=== PATIENT | female | born 1955 | race Caucasian/White ===

== ENCOUNTER → 2017-04-08 | Outpatient (CLI) | payer BC ==
--- NOTE | 2017-04-08 15:49 | MAMMOGRAPHY REPORT ---
BILATERAL DIGITAL SCREENING MAMMOGRAM WITH CAD: 04/08/2017 CLINICAL HISTORY: Routine screening. TECHNIQUE: Current study was also evaluated with a Computer Aided Detection (CAD) system. Bilateral CC and MLO views were obtained. COMPARISON: Comparison is made to exams dated: 03/03/2016 mammogram, 01/23/2014 mammogram, 02/25/2015 ma mmogram, 11/30/2012 mammogram, 11/06/2010 mammogram, and 11/17/2011 mammogram - [facility] er. BREAST COMPOSITION: There are scattered areas of fibroglandular density in both breasts. FINDINGS: No suspicious masses, calcifications, or areas of architectural distortion are noted in ei ther breast. There has been no significant interval change compared to prior exams. IMPRESSION: ACR BI-RADS CATEGORY 1: NEGATIVE There is no mammographic evidence of malignancy. A 1 year screening mammogram is recommended. The pa tient will receive written notification of the results. Approximately 10% of breast cancers are not detected with mammography. A negative mammographic report should not delay biopsy if a clinically suggestive mass is present. Brenda Eller M.D. ah/:04/08/2017 14:45:26 Supervisor Opening And Picking: Bonny BENITEZ(R)(M), [facility] letter sent: Normal 1/2 BI-RADS Code: ACR BI-RADS Category 1: Negative
== END | disposition home or self-care (01) ==
LOC: C.MAMM 13:39
PROVIDERS: ATTEND Internal Medicine
DX: Z12.31 Encounter for screening mammogram for malignant neoplasm of breast (principal)

== ENCOUNTER 2022-01-07 05:01 | Observation (INO) ==
--- NOTE | 2021-12-07 12:14 | PAT Medication Instructions ---
Medication Instructions Date of Service December 07, 2021 Home Medications Medication Instructions Recorded tramadol 50 mg tablet 50 mg PO Q6H PRN #12 tab 10/01/20 lisinopril 5 mg tablet 5 mg PO QPM aspirin 81 mg tablet 81 mg PO QAM atorvastatin 40 mg tablet 40 mg PO PM loratadine 10 mg tablet 10 mg PO QAM PRN vitamin B complex 1 tab PO QAM tramadol 50 mg tablet 50 mg PO Q6H PRN cholecalciferol (vitamin D3) 100 mcg (4,000 unit) capsule 100 mcg PO BID metoprolol succinate 25 mg tablet,extended release 24 hr 12.5 mg PO QAM DO NOT take the morning of surgery loratadine 10 mg tablet 10 mg PO QAM PRN vitamin B complex 1 tab PO QAM cholecalciferol (vitamin D3) 100 mcg (4,000 unit) capsule 100 mcg PO BID Take morning of surgery With a small sip of water, OTHERWISE NOTHING TO EAT OR DRINK AFTER MIDNIGHT: aspirin 81 mg tablet 81 mg PO QAM (unless surgeon directed otherwise) tramadol 50 mg tablet 50 mg PO Q6H PRN (if needed) metoprolol succinate 25 mg tablet,extended release 24 hr 12.5 mg PO QAM Take evening before surgery lisinopril 5 mg tablet 5 mg PO QPM atorvastatin 40 mg tablet 40 mg PO PM tramadol 50 mg tablet 50 mg PO Q6H PRN (if needed) cholecalciferol (vitamin D3) 100 mcg (4,000 unit) capsule 100 mcg PO BID Other Notes If you have any questions please call us at [phone] or [phone] or [phone] or [phone]
--- NOTE | 2021-12-08 10:58 | Anesthesiology Consultation ---
Date of Service December 08, 2021 Assessment & Plan (1) Encounter for pre-operative examination: Chart Review Chart Review: Acceptable Risk for Surgery (pending preop Covid testing results and PCP clearance scheduled 12/10/21) and Patient seen in Pre Admission Testing - Awaiting PCP clearance scheduled 12/10/21 Per PAT appt on 12/08/21, patient denies any recent travel or large group activities. No known Covid positive exposures or Covid related symptoms. No known Covid infection in the past 90 days. Pt is vaccinated for Covid. Preop Covid testing scheduled 01/05/22 = will await results. Educated on importance of self quarantining, social distancing and wearing mask in public for the patient one week prior to surgery and after Covid testing done Pt seen by cardio 10/26/21= patient seen for routine follow-up. Patient also looking to undergo knee replacement in near future. History of equivocal stress test that showed hypertensive BP response to exercise. Lisinopril was increased and patient continued on metoprolol. Patient feels well and offers no acute complaints. Hypertensionwell controlled in office. Continue current meds. Dyslipidemia/coronary artery calcification seen on CT scan. Nonischemic DSE in April 2021. EKG today showing NSR. Patient without exertional angina symptoms. Continue current medications. Pre-operative cardiovascular examination: In terms of preop risk assessment, per Humza Criteria, patient was counseled that she would be placed at a [id number]-[id number] risk (less than 5 %)for any adverse perioperative cardiovascular events associated with right knee replacement surgery. Negative dobutamine stress echo last April. EKG stable showing normal sinus rhythm. Patient is on a good medication regimen and no other cardiac testing or interventions would further lower that risk. Patient states she understands and is accepting ofthat risk and wishes to proceed with surgery. Right knee scope, partial medial and lateral meniscectomy 10/01/2020 = done under [facility] with LMA #4. Smooth IV induction. Atraumatic LMA insertion. Teaching & Discussion Pre-Anesthesia Teaching/Discussion Notes: Instructed NPO after midnight before surgery,except medications with 15 cc of water. Medication instructions provided according to the PAT guidelines. History Surgery Operation Date: 01/07/22 07:00 Proposed Procedures p Right Total Knee Arthroplasty - Kareem Desai MD Height/Weight Height: 5 ft Weight: 61.6 kg Allergies Allergy/AdvReac Type Severity Reaction Status Date / Time nickel Allergy Mild SKIN Verified 12/07/21 08:53 IRRITATION/RASH Additional Notes: Surgeon's office aware of nickel allergy Medications Home Medications Medication Instructions Recorded Confirmed Last Taken lisinopril 5 mg tablet 5 mg PO QPM 01/21/20 12/07/21 09/30/20 aspirin 81 mg tablet 81 mg PO QAM 09/26/20 12/07/21 09/26/20 atorvastatin 40 mg tablet 40 mg PO PM 09/26/20 12/07/21 09/30/20 loratadine 10 mg tablet 10 mg PO QAM PRN 09/26/20 12/07/21 10/01/20 05:00 vitamin B complex 1 tab PO QAM 09/26/20 12/07/21 10/01/20 05:00 tramadol 50 mg tablet 50 mg PO Q6H PRN #12 tab 10/01/20 12/07/21 Unknown cholecalciferol (vitamin D3) 100 100 mcg PO BID 12/07/21 12/07/21 Unknown mcg (4,000 unit) capsule metoprolol succinate 25 mg 12.5 mg PO QAM 12/07/21 12/07/21 Unknown tablet,extended release 24 hr Past Medical History Medical History Carotid artery plaque <50% bilaterally per 2019 duplex Coronary artery calcification On CT scan- negative DSE 04/2021 per cardio records FH of CAD (follows with S Cardio) Degenerative disc disease Lumbar area History of colon cancer S/p colectomy 2004- no chemo or XRT Hx of migraines Hyperlipidemia Hypertension Pre-diabetes Diet control Stress incontinence No current issues/stable Exercise / Class Metabolic Activity II 4-5 Yardwork/Stairs/Walk up hill (one flight of stairs - no chest pain or SOB ) Past Family History Family History Mother Family hx of colon cancer Family history of diabetes mellitus Grandmother (Maternal) Family history of diabetes mellitus Grandfather (Maternal) Family hx of colon cancer Other No family history of adverse response to anesthesia Past Surgical History Surgical History H/O parathyroidectomy 2 SURGERIES (did have hypercalcemia prior to surgery- improved s/p surgery- follows with endocrinology) History of arthroscopy right knee History of carpal tunnel release RT History of colon resection x2 from hx cancer no chemo or radiation History of colonoscopy History of salpingo-oophorectomy bilat History of tooth extraction Past Anesthesia History No Hx of Anesthesia Complications and No Family Hx of Anesthesia Complications History of PONV No Hx of PONV and No Hx of Motion Sickness Social History Smoking Status: Former smoker tobacco type: cigarettes Do You Dip or Chew Tobacco: No Smoking End Date: 1984 Hx Alcohol Use: No Hx Substance Use: No substance use type: does not use Review of Systems Hx of snoring- no witnessed apnea. No hx of sleep study Patient denies chest pain, shortness of breath, dyspnea on exertion, reflux, cough, wheezing, palpitations. No hx of seizures, stroke, VA. No hx of blood clots or blood transfusions Physical Exam Vital Signs VITALS BP 139/76 P 67 TEMP 98.3 SP02 98% RESP 16 Constitutional no acute distress ENMT Mouth: no TMJ clicking Thyromental Distance: < 3.5 Finger Breadths (2.5) Mallampati Class: II Missing bottom molars Full upper denture Neck + limited neck extension (minimal ) Respiratory normal respiratory effort; no respiratory distress Auscultation: lungs clear to auscultation bilaterally; no wheezes Cardiovascular Rate/Rhythm: regular rate and regular rhythm Heart Sounds: no murmur Vessels: no carotid bruit Musculoskeletal Spine: no pain with cervical ROM Extremities: extremities normal to inspection Psychiatric Orientation: alert Lab Results Anesthesia Preop Results Results Anesthesia Widget: WBC 6.25 K/uL (4.8-10.8) 12/08/21 Hgb 12.2 g/dL (12.0-16.0) 12/08/21 Hct 37.5 % (37-47) 12/08/21 Plt 313 K/uL (130-400) 12/08/21 Na 141 mmol/L (136-145) 12/08/21 K 4.3 mmol/L (3.5-5.1) 12/08/21 Cl 105 mmol/L (98-107) 12/08/21 CO2 28 mmol/L (21-32) 12/08/21 BUN 13 mg/dl (6-23) 12/08/21 Creat 0.60 mg/dl (0.6-1.2) 12/08/21 Glucose Level 84 mg/dl (70-99(Fasting)) 12/08/21 PT 10.8 Seconds (9.0-12.0) 12/08/21 PTT 26.4 Seconds (21.0-31.0) 12/08/21 INR 1.0 (0.9-1.1) 12/08/21 HA1c 6.3 % (4.5-5.6) H 12/08/21 Urine Color Yellow 12/08/21 Urine Appearance Clear (Clear) 12/08/21 Urine pH 7.5 (4.5-7.5) 12/08/21 Urine Specific [place] 1.007 (1.000-1.030) 12/08/21 Urine Protein Negative (Negative) 12/08/21 Urine Glucose (UA) Negative (Negative) 12/08/21 Urine Ketones Negative (Negative) 12/08/21 Urine Blood Negative (Negative) 12/08/21 Urine Nitrite Negative (Negative) 12/08/21 Urine Bilirubin Negative (Negative) 12/08/21 Urine Urobilinogen Negative (Negative) 12/08/21 Urine Leukocyte Esterase Negative (Negative) 12/08/21 Blood Type A Positive 12/08/21 Antibody Screen NEGATIVE 12/08/21 Testing Electrocardiogram Date: 10/26/21 Findings: + NSR @ (60bpm ) Normal EKG per cardio. Chest X-Ray Date: 12/08/21 Findings: + NAD FINDINGS: The lungs are clear. Cardiac silhouette is normal in size. No pleural effusions. No pneumothorax. S-shaped scoliosis and mild to moderate degenerative changes seen within the thoracolumbar spine. Stress Test Date: 04/15/21 Type: exercise (ECHO ) Resting EF: 60% Resting LV Function: normal Stress echo is probably negative for inducible ischemia, the septum is dyssynchronous with stress. Hypertensive BP response to stresspeak systolic pressure of 220 mmHg. Abnormal wall motion likely related to hypertension Stress EKG is equivocal for ischemia Adequate cardiovascular stress test as patient obtain 96% MPHR. 6.4 METS achieved. No significant arrhythmias were noted. Normal HR and hypertensive BP response to exercise. Patient denies chest discomfort reporting only fatigue at peak exercise. Grade 1 DD. LV wall thickness is normal. Mild MR. Other Testing Chest CT scan 01/05/2021 = tiny 2 mm subpleural nodule in the right upper lobe which is likely the nodule described on prior CT scan report from 01/18/2022. Unchanged. No further imaging follow-up of this is necessary, however, if the patient has greater than 39-ybmh-wlch history of smoking and she may qualify for annual lung cancer screening with low-dose CTs of the chest. Mild emphysematous lung disease. Carotid duplex 07/11/2019 = right and left carotid artery duplex examination i ndicates evidence of less than 50% stenosis of bilateral internal carotid arteries. Antegrade flow to both vertebral arteries.
--- NOTE | 2022-01-02 09:04 | History & Physical Report ---
Date of Service January 02, 2022 Assessment & Plan (1) Primary osteoarthritis of right knee: Plan: Treatment options discussed with the patient. She has failed conservative measures. She would like to proceed with surgical intervention. Risks, benefits and alternatives to surgery including but not limited to infection, DVT, pain, stiffness, need for revision surgery, damage to blood vessels, damage to nerves, PE, , were discussed with the patient and they wish to proceed. Plan for right total knee arthroplasty scheduled for Vasyl Shelby on January [address] Desai. We will plan on aspirin twice daily for 1 month postop for DVT prophylaxis. We will plan on outpatient PT postop. All questions answered. Patient will follow up postoperatively. History of Present Illness Chief Complaint: Right knee pain Primary Care Provider: Yari Loving MD 66-year-old female with past medical history significant for hypertension, high cholesterol, colon cancer, carotid artery disease who presents with ongoing right knee pain. Pain is interfering with her daily activities. She has failed conservative measures. She would like to proceed with surgery. Patient denies headaches, sweats, fevers, chills, double vision, blurred vision, cough, sore throat, dysphagia, chest pain, sob, wheezing, n/v/d/c, numbness, tingling, fatigue, urinary symptoms, mood disorders. ROS positive for right knee pain and stiffness. Allergies Allergy/AdvReac Type Severity Reaction Status Date / Time nickel Allergy Mild SKIN Verified 12/07/21 08:53 IRRITATION/RASH Home Medications Medication Instructions Recorded Confirmed Type lisinopril 5 mg tablet 5 mg PO QPM 01/21/20 12/07/21 History aspirin 81 mg tablet 81 mg PO QAM 09/26/20 12/07/21 History atorvastatin 40 mg tablet 40 mg PO PM 09/26/20 12/07/21 History loratadine 10 mg tablet 10 mg PO QAM PRN 09/26/20 12/07/21 History vitamin B complex 1 tab PO QAM 09/26/20 12/07/21 History tramadol 50 mg tablet 50 mg PO Q6H PRN #12 tab 10/01/20 12/07/21 Rx cholecalciferol (vitamin D3) 100 100 mcg PO BID 12/07/21 12/07/21 History mcg (4,000 unit) capsule metoprolol succinate 25 mg 12.5 mg PO QAM 12/07/21 12/07/21 History tablet,extended release 24 hr metformin 500 mg tablet,extended 500 mg PO DAILY 12/16/21 12/16/21 History release 24hr Past Med/Surg History Medical History (Updated 01/02/22 @ 09:03 by Иван Lange PA-C) Carotid artery plaque <50% bilaterally per 2018 duplex Coronary artery calcification On CT scan- negative DSE 04/2021 per cardio records FH of CAD (follows with S Cardio) Degenerative disc disease Lumbar area History of colon cancer S/p colectomy 2004- no chemo or XRT Hx of migraines Hyperlipidemia Hyperparathyroidism Per PCP records Hypertension Pre-diabetes On Metformin Stress incontinence No current issues/stable Surgical History H/O parathyroidectomy 2 SURGERIES (did have hypercalcemia prior to surgery- improved s/p surgery- follows with endocrinology) History of arthroscopy right knee History of carpal tunnel release RT History of colon resection x2 from hx cancer no chemo or radiation History of colonoscopy History of salpingo-oophorectomy bilat History of tooth extraction Family History Mother Family hx of colon cancer Family history of diabetes mellitus Grandmother (Maternal) Family history of diabetes mellitus Grandfather (Maternal) Family hx of colon cancer Other No family history of adverse response to anesthesia Social History Smoking Status: Former smoker Second Hand Exposure: No; Hx Alcohol Use: No Hx Substance Use: No Preferred Language: Gambian Communication Ability: Effective Medical Staff Credentialing Coordinator Required: No Beliefs That Will Affect Care: None Current Living Situation: Spouse Feels Safe at Home: Yes Assistive Devices: Denture - Upper and Glasses Review of Systems All systems reviewed & are unremarkable except as noted in HPI & below Physical Exam Constitutional: well developed and well nourished; no acute distress Eyes: PERRL, conjunctivae normal, anicteric sclerae ENMT: external ear and nose normal, oropharynx normal Neck: trachea midline, no thyromegaly Respiratory: normal respiratory effort, lungs clear to auscultation Cardiovascular: RRR, no murmur, no edema Musculoskeletal: Right knee: Tenderness medial joint line. Varus alignment. Mild crepitation with range of motion stable to valgus and varus stress test. Range of motion 0- 135 degrees. Skin: no rashes, warm and dry Neurologic: patellar DTR's 2+ bilat, sensation intact Psychiatric: A+Ox3, euthymic affect Results & Data ([facility]) Diagnostic Findings Right knee: Severe end-stage osteoarthritis right knee [id number] medial compartment. There is subchondral cystic formation medial tibial plateau. There is tricompartmental degenerative changes.
[2022-01-07] MEDS ORDERED: FAMOTIDINE 20 MG TAB PO SCH (06:00)
[2022-01-07] MEDS ORDERED: LR 500ML BOLUS, THEN 15ML/HR IV SCH (06:00)
[2022-01-07] MEDS ORDERED: GABAPENTIN 300 MG CAP PO SCH (06:00)
[2022-01-07] MEDS ORDERED: ceFAZolin 1000MG 1,000 MG/7.5 ML SYR IV SCH (06:00)
[2022-01-07] MEDS ORDERED: TRANEXAMIC ACID 1,000 MG **IV Intra-op IV SCH (06:00)
[2022-01-07] MEDS ORDERED: dexAMETHasone 4 MG TAB PO SCH (06:00)
[2022-01-07] MEDS ORDERED: TRANEXAMIC ACID 1,000 MG **IV Pre-op IV SCH (06:00)
[2022-01-07] MEDS ORDERED: CeleBREX 200 MG CAP PO SCH (06:00)
[2022-01-07] MEDS ORDERED: METOCLOPRAMIDE HCL 10 MG TABLET PO SCH (06:00)
[2022-01-07] MEDS ORDERED: ACETAMINOPHEN 500 MG TAB PO SCH (06:00)
[2022-01-07] MEDS ORDERED: ROPIVACAINE 0.5% HCL/PF 150 MG, BUPIVACAINE 0.75% MPF 20 ML, EPINEPHrine 30MG/30ML (OR ... INSTIL SCH (06:00)
[2022-01-07] MEDS ORDERED: ROPIVACAINE 0.5% 5 MG/ML 30 ML VIAL ONE (06:36)
[2022-01-07] MEDS ORDERED: BUPIVACAINE 0.5 % 5 MG/1 ML PF 10ML VIAL ONE (06:36)
[2022-01-07] MEDS ORDERED: fentaNYL citrate 100 MCG/2 ML VIAL IV PRN (06:38)
[2022-01-07] MEDS ORDERED: ATROPINE SULFATE 0.1 MG/ML 10ML SYR IV PRN (06:38)
[2022-01-07] MEDS ORDERED: ONDANSETRON INJ 2 MG/ML 2 ML VIAL IV PRN ×2 (06:38→11:20)
[2022-01-07] MEDS ORDERED: ePHEDrine sulfate 50 MG/ML AMP IV PRN (06:38)
[2022-01-07] MEDS ORDERED: MIDAZOLAM HCL 1 MG/ML 2ML VIAL ONE (06:50)
[2022-01-07] MEDS ORDERED: ORTHO JOINT ANESTHETIC ONE (06:51)
--- NOTE | 2022-01-07 07:13 | History & Physical Bridge Note ---
Date of Service January 07, 2022 History & Physical Bridge Note I have examined the patient, reviewed the History & Physical and in the interval since the performance of the History & Physical I have noted the following changes of clinical significance: no changes noted
--- NOTE | 2022-01-07 09:12 | Operative Report ---
Post Operative Report Pre & Post Diagnosis Operation Date: 01/07/22 07:00 Pre-Op Diagnosis: Right Knee Osteoarthritis Post-Op Diagnosis: Right Knee Osteoarthritis I identified the patient and participated in the time-out.: Yes Procedure Operation Date: 01/07/22 07:00 Actual Procedures p Right Total Knee Arthroplasty(Right), lateral release- Kareem Desai MD Surgeon Kareem Desai MD Private Investigator Surveillance J Carlos ROSARIO Estimated Blood Loss 2 Findings Consistent with Post-Op Diagnosis Specimens Bone cuts Drains 2 Hemovac Anesthesia Type MAC Spinal Regional Complications none Disposition Accompanied Patient To Recovery: No Disposition: Recovery Room Indications 66-year-old female with bilateral end-stage osteoarthritis of the knees medial compartment and patellofemoral joint [id number] medial compartment on weightbearing films with varus knees. Patient has nickel allergy Description of Procedure The patient was taken to the operating room and anesthetized under spinal MAC regional block. Patient was placed supine on the the operating table. A pneumatic tourniquet was placed about the right upper thigh. The knee exam demonstrated thin leg with full range of motion and mild pseudolaxity medially [id number] crepitation small effusion no instability. The involved leg was elevated exsanguinated with Esmarch bandage and the pneumatic tourniquet was raised to 300 millimeters mercury. A longitudinal incision was made across the anterior knee. Skin flaps were elevated. An incision was made into the medial retinaculum and extended up into the mid third of the quadriceps tendon and extended down to the tibial tubercle. Intra-articular findings demonstrated medial compartment osteoarthritis with a chronic radial tear and [id number] medial compartment with moderate patellofemoral osteoarthritis. The knee was exposed by excising cruciate ligaments and menisci. The infrapatellar fat pad was resected. The fat pad over the anterior femur at the upper aspect of the articular surface was resected for placement of the component in that area. A subperiosteal peel lateral release was performed around the patella. The [employer] Nephew journey 2.0 posterior stabilized total knee arthroplasty system was utilized for the procedure. The custom femoral cutting guide was pinned in position. The distal femoral cut was made. The size 4, 5 in 1 cutting block was placed. The anterior posterior and chamfer cuts were made. The knee was extended and a free hand cut technique was performed to the patella. The patella with was measured and the width was reproduced using a 29 symmetrical patella component. 3 drill holes are made for the patella component pegs. The tibia was then subluxed. The custom tibial cutting block was pinned in position and the proximal tibial cut was made with the oscillating saw. The size 3 tibial trial was externally rotated in line with the tibial tubercle and pinned in position. The punch for the stem was used. The femoral trial was inserted and centered the notch cutting devices were used and the collet was placed. Tibial trials were used for the insert. The size 11 trial gave balanced ligaments through full range of motion. Patella tracking was assessed with range of motion. The patella tracked with some lateral patellar tilt so I did a lateral release leaving the synovium intact and patella tracks centrally. The trials were removed. The Orthomix anesthetic cocktail was injected per protocol. The cut bone surfaces and soft tissue were copiously irrigated with pulsatile lavage saline solution. The final components were cemented with Simplex cement. The final components were [employer]hew journey 2.0 posterior stabilized right femoral component, 3 right tibial component, 11 mm posterior stabilized tibial polyethylene insert and 29 symmetrical patella. After the cement cured, the Betadine soak was used for 3 minutes. The knee was then copiously irrigated with pulsatile lavage saline solution. 2 drains were brought out laterally connected to Hemovac. The quadriceps tendon and medial retinaculum were closed with interrupted [id number] #1 Vicryl sutures. The knee was taken through full range of motion and repair was secure. Knee range of motion was 0-140 degrees. the subcutaneous tissues were closed with 2-0 Vicryl sutures. The skin was closed with 3 oh strata fix and Prineo glue system on the skin. A sterile dressing was applied after the glue dried. The tourniquet was let down and the patient had good capillary refill to the extremity. The patient tolerated the procedure well. My physician personnel security assistant J Carlos ROSARIO participated as heel sprayer first and was integral part in all aspects of the procedure including prepping, draping, leg positioning, soft tissue retraction, instrument management and assisted in the closure ,dressings application and will participate in postoperative care the patient. I attest to the content of the Intraoperative Record and any orders documented therein. Any exceptions are noted below.
[2022-01-07] MEDS ORDERED: ONDANSETRON INJ 2 MG/ML 2 ML VIAL ONE (09:53)
[2022-01-07] MEDS ORDERED: PROPOFOL IV EMULSION 10 MG/ML 20 ML VIAL IV ONE (09:53)
[2022-01-07] MEDS ORDERED: DEXAMETHASONE SOD INJ 4 MG/ML VIAL ONE (09:53)
--- NOTE | 2022-01-07 10:26 | XRay Report ---
XR knee RT 1 or 2V routine HISTORY: 66 years-old Female Surgical Post Op right knee total joint arthroplasty COMPARISON: Knee radiographs 09/26/2020 TECHNIQUE: 2 views of the right knee FINDINGS: Right knee total joint arthroplasty with patellar resurfacing. Surgical drainage catheter is present. Expected postoperative soft tissue swelling with deep tissue air. No acute fracture or unexpected op aque foreign body. IMPRESSION: Right knee total joint arthroplasty with expected postoperative changes. ACT 112: Negative or not required by law. The above report was generated using voice recognition software. It may contain grammatical, syntax o r spelling errors. Electronically signed by: Herminio Horne M.D. 01/07/2022 10:24 AM
--- NOTE | 2022-01-07 10:41 | Anesthesiology Progress Note ---
Date of Service January 07, 2022 Anesthesia Post Procedure Vital Signs Vital Signs: Temp Pulse Pulse Resp BP Pulse Ox 01/07/22 10:35 59 L 19 127/73 93 01/07/22 10:25 59 L 15 122/70 95 01/07/22 10:15 57 L 21 130/80 99 01/07/22 10:05 60 20 129/64 99 01/07/22 09:58 96.8 F L 64 16 114/72 96 01/07/22 05:39 98.2 F 64 20 169/79 H 96 Transfer of Care Handoff Completed per policy Notes Mental Status: alert / awake / arousable and participated in evaluation Patient Amnestic to Procedure: Yes Nausea / Vomiting: adequately controlled Pain: adequately controlled Airway Patency, RR, SpO2: stable & adequate BP & HR: stable & adequate Hydration State: stable & adequate Neuraxial Anesthesia: was administered and sensory block is resolving Anesthetic Complications: no major complications apparent and Pt Satisfied with anesthetic care
[2022-01-07] MEDS ORDERED: HYDROmorphone INJ 0.5 MG/0.5 ML SYR IV PRN (11:20)
[2022-01-07] MEDS ORDERED: MAGNESIUM HYDROXIDE SUSP 30 ML UDC PO PRN (11:20)
[2022-01-07] MEDS ORDERED: bisacodyL 10 MG SUPP PR PRN (11:20)
[2022-01-07] MEDS ORDERED: NALOXONE HCL 0.4 MG/1 ML VIAL/CARP IV PRN (11:20)
[2022-01-07] MEDS: SODIUM CHLORIDE 0.9% 1000ML 1,000 ML IV SCH (11:20)
[2022-01-07] MEDS ORDERED: METOCLOPRAMIDE HCL INJ 5 MG/ML 2 ML VIAL IV PRN (11:20)
[2022-01-07] MEDS ORDERED: LORATADINE 10 MG TAB PO PRN (11:20)
[2022-01-07] MEDS ORDERED: GLUCAGON FOR INJ 1 MG VIAL SQ PRN (12:21)
[2022-01-07] MEDS ORDERED: GLUCOSE 40% GEL 15 GM TUBE PO PRN (12:21)
[2022-01-07] MEDS ORDERED: GLUCOSE 10 TABS/TUBE PO PRN (12:21)
[2022-01-07] MEDS ORDERED: CARBOHYDRATES FOR HYPOGLYCEMIA PO PRN (12:21)
[2022-01-07] MEDS ORDERED: DEXTROSE 50% 50 ML SYRINGE IV PRN (12:21)
--- NOTE | 2022-01-07 12:33 | Hospitalist Consultation ---
Date of Consultation January 07, 2022 Assessment & Plan (1) Primary osteoarthritis of right knee: POD#[address] Desai activity and wound care orders as per ortho pain control with bowel regimen PT/OT monitor H/H for acute blood loss anemia and transfuse blood products PRN Minimal EBL (2) Hypertension: BP controlled, continue lisinopril metoprolol (3) Pre-diabetes: Hgb A1c 6.3 07/2021 Update A1c with a.m. labs Hold metformin, NovoLog per protocol while hospitalized (4) Hyperlipidemia: Continue statin (5) DVT prophylaxis: ASA 81 mg BID as per Ortho Thank you for this consultation. We will follow the patient with you during their hospital stay. You can reach a member of the [facility] Hospitalist Team 21/02 via the [facility] in [place] Text. Supervising Physician Co-Signing Physician Notes 66 yo F w/ PMH of HTN, HLD, prediabetes, and others who is s/p Rt TKA 01/07/22 for failed conservative Mx of Rt OA affecting her ADL. Pt doing hemodynamically well at bedside exam. Further recs as above. Watch for ABL anemia, Hb in AM. Resume home meds as able. Upon Exam GENERAL: Alert and oriented x3. NAD, on RA. HEENT: No pallor, no icterus. Pupils equal, round and reactive to light. Oral mucosa moist. NECK: No JVD, no neck masses. HEART: S1 and S2 heard. Regular rate and rhythm. No murmur, no gallop. RESPIRATORY SYSTEM: Normal AP diameter. No accessory muscle use. No wheezing, no crackles. ABDOMEN: Soft, bowel sounds present, nontender, no distention. CENTRAL NERVOUS SYSTEM: No facial droop. Speech is clear. Obeys simple commands. Moves extremities. EXTREMITIES: No edema, no erythema seen. RLE toes- can't wiggle; has faint sensation but vascular is good. Rt knee w/ clean dressing and hemovac drain in situ. I have seen and examined the patient and have discussed the case with the pr ovider above. I agree with the assessment and plan as stated. History of Present Illness Reason for Consultation: Postop medical management Requesting Physician: Dr. Desai Attending Physician: Dr. Miguel Balderas History of Present Illness 66-year-old female with PMH hyperparathyroidism s/p parathyroidectomy, dyslipidemia, prediabetes, HTN, asymptomatic carotid stenosis, colon cancer s/p resection, and other problems listed below who is s/p right TKA today by Dr. Desai. Postoperatively, the patient is doing well. She reports residual numbness from surgery. Pain is well controlled. No chest pain or shortness of breath. Denies abdominal pain or nausea. No lightheadedness or dizziness. She has not voided in surgery. Allergies Allergy/AdvReac Type Severity Reaction Status Date / Time nickel Allergy Mild SKIN Verified 01/07/22 05:36 IRRITATION/RASH Home Medications Medication Instructions Recorded Confirmed Type lisinopril 5 mg tablet 5 mg PO QPM 01/21/20 01/07/22 History aspirin 81 mg tablet 81 mg PO QAM 09/26/20 01/07/22 History atorvastatin 40 mg tablet 40 mg PO PM 09/26/20 01/07/22 History loratadine 10 mg tablet 10 mg PO QAM PRN 09/26/20 01/07/22 History vitamin B complex 1 tab PO QAM 09/26/20 01/07/22 History tramadol 50 mg tablet 50 mg PO Q6H PRN #12 tab 10/01/20 01/07/22 Rx cholecalciferol (vitamin D3) 100 100 mcg PO BID 12/07/21 01/07/22 History mcg (4,000 unit) capsule metoprolol succinate 25 mg 12.5 mg PO QAM 12/07/21 12/07/21 History tablet,extended release 24 hr metformin 500 mg tablet,extended 500 mg PO DAILY 12/16/21 01/07/22 History release 24hr Patient History Medical History Carotid artery plaque <50% bilaterally per 2019 duplex Coronary artery calcification On CT scan- negative DSE 04/2021 per cardio records FH of CAD (follows with [facility]) Degenerative disc disease Lumbar area History of colon cancer S/p colectomy 2004- no chemo or XRT Hx of migraines Hyperlipidemia Hyperparathyroidism Per PCP records Hypertension Pre-diabetes On Metformin Stress incontinence No current issues/stable Surgical History H/O parathyroidectomy 2 SURGERIES (did have hypercalcemia prior to surgery- improved s/p surgery- follows with endocrinology) History of arthroscopy right knee History of carpal tunnel release RT History of colon resection x2 from hx cancer no chemo or radiation History of colonoscopy History of salpingo-oophorectomy bilat History of tooth extraction Family History Mother Family hx of colon cancer Family history of diabetes mellitus Grandmother (Maternal) Family history of diabetes mellitus Grandfather (Maternal) Family hx of colon cancer Other No family history of adverse response to anesthesia Social History Smoking Status: Former smoker Smoking End Date: 1984; Second Hand Exposure: No; Do You Dip or Chew Tobacco: No; Tobacco Cessation Education Requested by Patient: No Hx Alcohol Use: No Hx Substance Use: No Preferred Language: Amharic Communication Ability: Effective Panel Installer Required: No Beliefs That Will Affect Care: None Current Living Situation: Spouse Other Information That Helps Us Care for You: No Feels Safe at Home: Yes Safety Concerns: Feels Safe At This Time Assistive Devices: Denture - Upper and Glasses Review of Systems Review of Systems: ROS per HPI, all other systems reviewed and negative Physical Exam Constitutional: WD/WN, vitals as above Eyes: PERRL, conjunctivae normal, anicteric sclerae ENMT: external ear and nose normal, oropharynx normal Respiratory: normal respiratory effort, lungs clear to auscultation Cardiovascular: Rate/Rhythm: regular rate and regular rhythm Vessels: normal peripheral pulses Extremities: no edema Gastrointestinal (Abdomen): normal bowel sounds, soft, nontender, no hepatosplenomegaly Musculoskeletal: S/p right knee surgery, surgical dressing CDI, drain in place draining bloody drainage, circulation and sensation intact however movement limited due to residual numbness from anesthesia Skin: no rashes, warm and dry Neurologic: PERRL, EOMI, accommodation nl, no face palsy, no dysarthria Psychiatric: A+Ox3, euthymic affect Results & Data Results & Data ([facility]) Vital Signs (Past 12 Hours) Vital Signs Temp Pulse Pulse Resp BP Pulse Ox 01/07/22 11:50 36.3 C L 63 16 118/76 93 01/07/22 11:20 36.3 C L 56 L 16 128/76 99 01/07/22 11:05 36.3 C L 58 L 15 122/78 97 01/07/22 10:50 36.3 C L 51 L 17 117/75 100 01/07/22 10:35 59 L 19 127/73 93 01/07/22 10:25 59 L 15 122/70 95 01/07/22 10:15 57 L 21 130/80 99 01/07/22 10:05 60 20 129/64 99 01/07/22 09:58 36 C L 64 16 114/72 96 01/07/22 05:39 36.8 C 64 20 169/79 H 96
[2022-01-07] MEDS: ACETAMINOPHEN 500 MG TAB PO SCH ×2 (14:23→22:35)
[2022-01-07] MEDS: ceFAZolin 1000MG 1,000 MG/7.5 ML SYR IV SCH (16:23)
[2022-01-07] MEDS: INSULIN ASPART PER UNIT SC SCH ×2 (17:51→21:41)
[2022-01-07] MEDS ORDERED: ATORVASTATIN 40 MG TAB PO SCH (21:00)
[2022-01-07] MEDS ORDERED: SENNA 8.6 MG TAB PO SCH (21:00)
[2022-01-07] MEDS: DOCUSATE SODIUM 100 MG CAP PO SCH (21:37)
[2022-01-07] MEDS: CeleBREX 200 MG CAP PO SCH (21:37)
[2022-01-07] MEDS: CHOLECALCIFEROL 1,000 UNITS 25 MCG TAB PO SCH (21:37)
[2022-01-07] MEDS: ASPIRIN 81 MG ECTAB PO SCH (22:35)
[2022-01-08] MEDS: ceFAZolin 1000MG 1,000 MG/7.5 ML SYR IV SCH (00:05)
[2022-01-08] MEDS: SODIUM CHLORIDE 0.9% 1000ML 1,000 ML IV SCH (00:28)
[2022-01-08] MEDS: oxyCODONE HCL IR 5 MG TAB (IMMEDIATE RELEASE) PO PRN ×2 (03:56→10:56)
[2022-01-08] MEDS: ACETAMINOPHEN 500 MG TAB PO SCH (05:49)
--- NOTE | 2022-01-08 07:42 | Orthopedic Progress Note ---
Date of Service January 08, 2022 Assessment & Plan (1) Primary osteoarthritis of right knee: Plan: Postop day #1 right total knee arthroplasty -PT/OT -Pain management as written -DVT prophylaxis: SCDs, teds, aspirin twice a day -A.m. labs are pending -Discharge planning: Patient is planning on outpatient PT. Plan on discharge home today as long as therapy goes well. Admission and Anticipated Discharge Date Admission Date: January 07, 2022 Subjective Postop day 1 right total knee. Patient is doing well this morning pain is controlled. No other complaints. Hoping to go home today. Review of Systems Review of Systems: All systems reviewed & are unremarkable except as noted in Subjective Physical Exam Physical Exam: Right knee: Dressing is clean, dry, intact. Distally neur ovascular status and sensation intact. No calf tenderness. Toes are mobile. Good dorsiflexion. Constitutional: WD/WN, vitals as above Results & Data ([facility]) Vital Signs (Past 12 Hours) Vital Signs Temp Pulse Pulse Resp BP Pulse Ox 01/08/22 03:53 36.9 C 72 16 107/53 L 95 01/07/22 22:29 36.5 C 65 16 138/78 96
[2022-01-08 08:51] LABS: Hematocrit (blood only) 26.5 % (37-47); Hemoglobin 8.8 g/dL (12.0-16.0); Mean Corpuscular Hemoglobin 28.9 pg (25-34); Mean Corpuscular Hgb Conc 33.2 g/dL (32-36); Mean Corpuscular Volume 87.2 fL (80-100); Mean Platelet Volume 11.2 fL (7.4-10.4); Platelet Count 226 K/uL (130-400); RDW Standard Deviation 44.6 fL (36.4-46.3); Red Blood Count 3.04 M/uL (4.2-5.4); White Blood Count 13.41 K/uL (4.8-10.8)
[2022-01-08] MEDS: CHOLECALCIFEROL 1,000 UNITS 25 MCG TAB PO SCH (08:59)
[2022-01-08] MEDS: DOCUSATE SODIUM 100 MG CAP PO SCH (08:59)
[2022-01-08] MEDS: ASPIRIN 81 MG ECTAB PO SCH (08:59)
[2022-01-08] MEDS: CeleBREX 200 MG CAP PO SCH (08:59)
[2022-01-08] MEDS ORDERED: METOPROLOL SUCC 25MG EXT REL TAB PO SCH (09:00)
[2022-01-08] MEDS ORDERED: VITAMIN B COMPLEX TAB PO SCH (09:00)
[2022-01-08] MEDS ORDERED: MULTIVITAMIN TAB PO SCH (09:00)
[2022-01-08] MEDS: INSULIN ASPART PER UNIT SC SCH ×2 (09:01→12:00)
[2022-01-08 09:08] LABS: BUN Creatinine Ratio 28.6 (10-20); Calcium 9.4 mg/dl (8.5-10.1); Creatinine Clr Calc Pharmacy 53.3 ml/min; Est GFR (African American) 83.4 ml/min; Est GFR (Non-African American) 71.9 ml/min; Potassium 4.2 mmol/L (3.5-5.1)
--- NOTE | 2022-01-08 12:18 | Hospitalist Progress Note ---
Date of Service January 08, 2022 Assessment & Plan (1) Primary osteoarthritis of right knee: Plan: POD#[address] Desai management per orthopedics (2) Hypertension: Plan: BP controlled, continue lisinopril metoprolol (3) Pre-diabetes: Plan: Hgb A1c 6.3 07/2021; from today pending Continue home metformin (4) Hyperlipidemia: Plan: Continue statin Plan: Leucocytosis- likely from periop steroids vs reactive. She is well looking with no focal source of infection identified. No indication for ABx currently. F/u with PCP. Anemia- post op- Hb 8.8 today, baseline >12. likely related to periop blood loss. Does not require blood transfusion currently, asymptomatic. Recommend oral iron supplementation- Defer to primary team. F/u with PCP DVT ppx- ASA bid per primary team. Recommend PPI if GI symptoms. Stable for discharge from hospitalist perspective. Dispo per primary team Admission and Anticipated Discharge Date Admission Date: January 07, 2022 Subjective She feels fine. Pain is controlled. Doing well with therapy. She hopes to get discharged today. Tolerating oral intake well. No N/V. Voiding without issues. Passing gas, No BM today yet. Physical Exam Physical Exam: General: Sitting comfortably in bed, not in distress, on room air HEENT: EOMI, SAL, MMM Chest: Clear breath sounds bilaterally, no wheezes or crackles CVS: Regular rate and rhythm, normal heart sounds, no murmur Abdomen: Soft, non tender, not distended, normal bowel sounds Neuro: Awake, alert, oriented, conversing well, non focal Extremities: Rt knee covered with dressing, hemovac suction in place Results & Data Results & Data ([facility]) Vital Signs (Past 12 Hours) Vital Signs Temp Pulse Pulse Resp BP Pulse Ox 01/08/22 10:24 36.4 C L 69 16 130/73 96 01/08/22 08:23 36.4 C L 69 16 130/73 96 01/08/22 03:53 36.9 C 72 16 107/53 L 95 Laboratory Results Laboratory Results WBC 13.41 K/uL (4.8-10.8) H 01/08/22 08:05 RBC 3.04 M/uL (4.2-5.4) L 01/08/22 08:05 Hgb 8.8 g/dL (12.0-16.0) L 01/08/22 08:05 Hct 26.5 % (37-47) L 01/08/22 08:05 MCV 87.2 fL (80-100) 01/08/22 08:05 MCH 28.9 pg (25-34) 01/08/22 08:05 MCHC 33.2 g/dL (32-36) 01/08/22 08:05 RDW Std Deviation 44.6 fL (36.4-46.3) 01/08/22 08:05 RDW Coeff of Temo 14.0 % (11.5-14.5) 01/08/22 08:05 Plt Count 226 K/uL (130-400) 01/08/22 08:05 MPV 11.2 fL (7.4-10.4) H 01/08/22 08:05 Sodium 137 mmol/L (136-145) 01/08/22 08:05 Potassium 4.2 mmol/L (3.5-5.1) 01/08/22 08:05 Chloride 106 mmol/L (98-107) 01/08/22 08:05 Carbon Dioxide 26 mmol/L (21-32) 01/08/22 08:05 Anion Gap 5 (3-11) 01/08/22 08:05 BUN 24 mg/dl (6-23) H 01/08/22 08:05 Creatinine 0.84 mg/dl (0.6-1.2) 01/08/22 08:05 Est Cr Clr Drug Dosing 53.3 ml/min 01/08/22 08:05 Est GFR ( Amer) 83.4 ml/min 01/08/22 08:05 Est GFR (Non-Af Amer) 71.9 ml/min 01/08/22 08:05 BUN/Creatinine Ratio 28.6 (10-20) H 01/08/22 08:05 Glucose 109 mg/dl (70-99(Fasting)) H 01/08/22 08:05 POC Glucose 120 mg/dl (70-99) H 01/08/22 11:51 Calcium 9.4 mg/dl (8.5-10.1) 01/08/22 08:05 SARS-CoV-2, RNA, NAAT NEGATIVE (NEGATIVE) 01/07/22 05:19 Impressions Knee X-Ray 01/07/22 10:00 XR knee RT 1 or 2V routine HISTORY: 66 years-old Female Surgical Post Op right knee total joint arthroplasty COMPARISON: Knee radiographs 09/26/2020 TECHNIQUE: 2 views of the right knee FINDINGS: Right knee total joint arthroplasty with patellar resurfacing. Surgical drainage catheter is present. Expected postoperative soft tissue swelling with deep tissue air. No acute fracture or unexpected opaque foreign body. IMPRESSION: Right knee total joint arthroplasty with expected postoperative changes. ACT 112: Negative or not required by law. The above report was generated using voice recognition software. It may contain grammatical, syntax or spelling errors. Electronically signed by: Herminio Horne M.D. 01/07/2022 10:24 AM
[2022-01-08 12:47] LABS: Estimated Average Glucose 131 mg/dl; Hemoglobin A1C 6.2 % (4.5-5.6)
[2022-01-08] MEDS ORDERED: lisinopril 5 MG TAB PO SCH (21:00)
--- NOTE | 2022-01-11 09:57 | Discharge Summary ---
Date of Service January 11, 2022 Admission HPI Per Admitting Provider 66-year-old female with past medical history significant for hypertension, high cholesterol, colon cancer, carotid artery disease who presents with ongoing right knee pain. Pain is interfering with her daily activities. She has failed conservative measures. She would like to proceed with surgery. Patient denies headaches, sweats, fevers, chills, double vision, blurred vision, cough, sore throat, dysphagia, chest pain, sob, wheezing, n/v/d/c, numbness, tingling, fatigue, urinary symptoms, mood disorders. ROS positive for right knee pain and stiffness. Admission Exam Per Admitting Provider Constitutional: well developed and well nourished; no acute distress Eyes: PERRL, conjunctivae normal, anicteric sclerae ENMT: external ear and nose normal, oropharynx normal Neck: trachea midline, no thyromegaly Respiratory: normal respiratory effort, lungs clear to auscultation Cardiovascular: RRR, no murmur, no edema Musculoskeletal: Right knee: Tenderness medial joint line. Varus alignment. Mild crepitation with range of motion stable to valgus and varus stress test. Range of motion 0- 135 degrees. Skin: no rashes, warm and dry Neurologic: patellar DTR's 2+ bilat, sensation intact Psychiatric: A+Ox3, euthymic affect Principal Diagnosis right knee osteoarthritis Discharge Exam Right knee: Dressing is clean, dry, intact. Distally neurovascular status and sensation intact. No calf tenderness. Toes are mobile. Good dorsiflexion. Constitutional WD/WN, vitals as above Discharge Data Allergies Allergy/AdvReac Type Severity Reaction Status Date / Time nickel Allergy Mild SKIN Verified 01/07/22 05:36 IRRITATION/RASH Consultations 01/07/22 05:00 Consult Hospitalist Routine Procedures Performed Operation Date: 01/07/22 07:00 Actual Procedures p Right Total Knee Arthroplasty(Right) - Kareem Desai MD Ordered Studies 01/07/22 05:00 US - OR guided needle placemen Routine Hospital Course (1) Primary osteoarthritis of right knee: Patient presented for same day admission following right TKA on 01/07/22. She tolerated procedure well. The Patient had an uneventful hospital course. Post-operatively, her activity was progressed and well tolerated. They participated in PT with ambulation distance of 200 feet. ROM of operative knee reached 90 degrees. Labs remained stable- lowest hemoglobin recorded: 8.8. Dr. Shaheen Choi of medical service was consulted for medical management during admission. Pain controlled on oral medications. Please refer to daily progress notes and PT notes for complete details. After exam on 01/08/22, patient was felt to be stable for discharge home with plans on attending outpatient PT. Patient will f/u in the office in about 2 weeks for further evaluation including x-rays and incision check, sooner if having any issues or concerns. Postop day #1 right total knee arthroplasty -PT/OT -Pain management as written -DVT prophylaxis: SCDs, teds, aspirin twice a day -A.m. labs are pending -Discharge planning: Patient is planning on outpatient PT. Plan on discharge home today as long as therapy goes well. Lab Results 01/07/22 01/07/22 01/07/22 Range/Units 05:19 05:39 16:57 WBC (4.8-10.8) K/uL RBC (4.2-5.4) M/uL Hgb (12.0-16.0) g/dL Hct (37-47) % MCV (80-100) fL MCH (25-34) pg MCHC (32-36) g/dL RDW Std Deviation (36.4-46.3) fL RDW Coeff of Temo (11.5-14.5) % Plt Count (130-400) K/uL MPV (7.4-10.4) fL Sodium (136-145) mmol/L Potassium (3.5-5.1) mmol/L Chloride (98-107) mmol/L Carbon Dioxide (21-32) mmol/L Anion Gap (3-11) BUN (6-23) mg/dl Creatinine (0.6-1.2) mg/dl Est Cr Clr Drug Dosing ml/min Est GFR ( Amer) ml/min Est GFR (Non-Af Amer) ml/min BUN/Creatinine Ratio (10-20) Glucose (70-99(Fasting)) mg/dl POC Glucose 106 H 154 H (70-99) mg/dl Estimat Average Glucose mg/dl Hemoglobin A1c (4.5-5.6) % Calcium (8.5-10.1) mg/dl SARS-CoV-2, RNA, NAAT NEGATIVE (NEGATIVE) 01/07/22 01/08/22 01/08/22 Range/Units 20:35 08:05 08:05 WBC 13.41 H (4.8-10.8) K/uL RBC 3.04 L (4.2-5.4) M/uL Hgb 8.8 L (12.0-16.0) g/dL Hct 26.5 L (37-47) % MCV 87.2 (80-100) fL MCH 28.9 (25-34) pg MCHC 33.2 (32-36) g/dL RDW Std Deviation 44.6 (36.4-46.3) fL RDW Coeff of Temo 14.0 (11.5-14.5) % Plt Count 226 (130-400) K/uL MPV 11.2 H (7.4-10.4) fL Sodium 137 (136-145) mmol/L Potassium 4.2 (3.5-5.1) mmol/L Chloride 106 (98-107) mmol/L Carbon Dioxide 26 (21-32) mmol/L Anion Gap 5 (3-11) BUN 24 H (6-23) mg/dl Creatinine 0.84 (0.6-1.2) mg/dl Est Cr Clr Drug Dosing 53.3 ml/min Est GFR ( Amer) 83.4 ml/min Est GFR (Non-Af Amer) 71.9 ml/min BUN/Creatinine Ratio 28.6 H (10-20) Glucose 109 H (70-99(Fasting)) mg/dl POC Glucose 146 H (70-99) mg/dl Estimat Average Glucose mg/dl Hemoglobin A1c (4.5-5.6) % Calcium 9.4 (8.5-10.1) mg/dl SARS-CoV-2, RNA, NAAT (NEGATIVE) 01/08/22 01/08/22 01/08/22 Range/Units 08:05 08:07 11:51 WBC (4.8-10.8) K/uL RBC (4.2-5.4) M/uL Hgb (12.0-16.0) g/dL Hct (37-47) % MCV (80-100) fL MCH (25-34) pg MCHC (32-36) g/dL RDW Std Deviation (36.4-46.3) fL RDW Coeff of Temo (11.5-14.5) % Plt Count (130-400) K/uL MPV (7.4-10.4) fL Sodium (136-145) mmol/L Potassium (3.5-5.1) mmol/L Chloride (98-107) mmol/L Carbon Dioxide (21-32) mmol/L Anion Gap (3-11) BUN (6-23) mg/dl Creatinine (0.6-1.2) mg/dl Est Cr Clr Drug Dosing ml/min Est GFR ( Amer) ml/min Est GFR (Non-Af Amer) ml/min BUN/Creatinine Ratio (10-20) Glucose (70-99(Fasting)) mg/dl POC Glucose 128 H 120 H (70-99) mg/dl Estimat Average Glucose 131 mg/dl Hemoglobin A1c 6.2 H (4.5-5.6) % Calcium (8.5-10.1) mg/dl SARS-CoV-2, RNA, NAAT (NEGATIVE) Total Time Total Time Spent Total Time Spent (In Minutes): 20 Discharge Plan Discharge Items Patient Disposition: Home - Self-Care Reason For Visit: Right Knee Osteoarthritis Discharge Diagnosis: Right Knee Osteoarthritis Activity: Per Instructions section Weightbearing: Right weightbearing Weightbearing Comment: as tolerated with walker Non-emergency contact: Surgeon Call non-emergency contact if: you have any medication questions, your pain is not controlled, your pain is concerning for you, you have a fever, your temperature is above 101, your temperature is above 101.5, your wound has increased redness and your wound has increased drainage Follow-up/Referrals: Yari Loving MD [Primary Care Provider] - Kareem Desai MD [Surgeon] - (Follow up with Dr. Desai in 14 days from the day of surgery for your first post operative visit. ) Diet: Regular Addtl Attending Provider Instructions: ACTIVITY RECOMMENDATIONS: SELF CARE INSTRUCTIONS AFTER TOTAL KNEE REPLACEMENT A. You may need to continue a physical therapy program after discharge from the hospital. There are several options available to you. Your doctor will assist you in selecting the best one for you. 1. An out-patient facility 2 to 3 times a week for therapy or home therapy. 2. Continue working on all exercises taught to you in the hospital. Your goals should be to increase bending of your knee to 90 degrees and beyond and to fully straighten your knee. B. You may progress at your own pace from walking with a walker or crutches to a cane; then to no assistive devices. C. Make walking a part of your daily routine. Be up as much as comfortable with rest periods throughout the day. Rest with leg elevation is very important. Use the ice wrap frequently for the first 3-4 weeks. D. There are no restrictions on activities. You may ride in a car, shop, participate in financial reserve clerk and all social activities. E. Wear the long elastic stockings (AN hose) 20 hours a day for 2 weeks after surgery. They can be removed several times a day for laundering and for a bath. F. You may shower, no tub baths until cleared by your doctor. SPECIAL CARE INSTRUCTIONS: VERY IMPORTANT TO READ AND REVIEW A. There are a few signs you need to watch for after you are home. Call [facility] if you notice any of the followin. Increased severe knee pain. Some pain is expected especially when you exercise. 2. Increased swelling in your leg or knee; pain or swelling of the calf muscle in either lower leg. 3. Any fluid drainage from the incision. 4. Shortness of breath or chest pain. B. Please call [facility] at if you have any concerns or questions about your operation or recovery. The doctor or his nurse will return your call promptly. C. You must take antibiotics before dental work, bladder, bowel or other surgery. Your doctor will provide you with a permanent care to carry describing this precaution. IMPORTANT: * REMEMBER TO TAKE ASPIRIN, 81 MG, TWICE DAILY FOR 4 WEEKS UNLESS OTHERWISE DIRECTED. THIS IS YOUR BLOOD THINNER. * HIGH RISK PATIENTS MAY BE PRESCRIBED A STRONGER BLOOD THINNER. THIS WILL BE PROVIDED AT DISCHARGE. * CALL IF INCREASED PAIN, REDNESS, DRAINAGE OR FEVER GREATER THAT 101. * WEAR AN HOSE 20 HOURS PER DAY FOR 2 WEEKS. This is a mesh tape dressing that is covered with glue. It should remain in place until the incision is properly healed, usually 10-14 days. This dressing is designed to naturally slough off. You may trim the excess mesh tape as it peels off. Incision may be briefly wet in a shower. Dry immediately by blotting with a clean, dry towel. Do not bath or swim until instructed by your doctor. Do not scratch, rub, or pick at the dressing. Do not apply any topical ointments or lotions until dressing is completely removed and/or instructed by your doctor. There may be a small piece of suture material at one end of your incision. Do not pull or trim this. If it is bothersome or catching on clothing, you may cover it with a band-aid. If you have any drainage or questions about your dressing call . FOLLOW UP VISIT: If appointment is not already scheduled: Please call [facility] to make a follow-up appointment for 2 weeks after your surgery at . Stand-Alone Forms: My [facility], Smoking Cessation Medications and DC Order Prescriptions: New celecoxib [Celebrex] 200 mg Capsule 200 mg PO BID Qty: 60 RF: 0 aspirin 81 mg Tablet,Delayed Release (Dr/Ec) 81 mg PO BID Qty: 60 RF: 0 acetaminophen [Tylenol Extra Strength] 500 mg Tablet 1,000 mg PO Q8 Qty: 60 RF: 0 oxycodone 5 mg Tablet 5 - 10 mg PO .Q4h-6h MDD 6 PRN (Reason: pain) Qty: 30 RF: 0 Continued lisinopril 5 mg tablet 5 mg PO QPM RF: 0 atorvastatin 40 mg Tablet 40 mg PO PM RF: 0 vitamin B complex Tablet 1 tab PO QAM RF: 0 loratadine 10 mg Tablet 10 mg PO QAM PRN (Reason: Allergy Symptoms) RF: 0 metoprolol succinate 25 mg Tablet Extended Release 24 Hr 12.5 mg PO QAM RF: 0 cholecalciferol (vitamin D3) 100 mcg (4,000 unit) Capsule 100 mcg PO BID RF: 0 metformin 500 mg Tablet Extended Release 24hr 500 mg PO DAILY RF: 0 Discontinued aspirin 81 mg Tablet 81 mg PO QAM RF: 0 tramadol 50 mg tablet 50 mg PO Q6H PRN (Reason: pain) Qty: 12 RF: 0 Discharge Orders: Discharge Order (Routine); Ordered 01/08/22 Ordered By: Иван Lange Admission Data Admit Date/Time: 01/07/22 10:00 Attending Provider: Rogusky,Kareem J Admit Provider: Kareem Desai Primary Care Provider: Yari Loving Other Providers: Shaheen Choi Other Interventions: Discharge Summary Assessment (RN) Last Done: 01/08/22 10:24
== END 2022-01-08 13:49 | disposition home or self-care (01) ==
LOC: ASU 05:01 → 3N 05:01

== ENCOUNTER 2023-01-05 05:02 | Observation (INO) ==
--- NOTE | 2022-12-16 16:18 | PAT Medication Instructions ---
Medication Instructions Date of Service December 16, 2022 Home Medications atorvastatin 40 mg tablet 40 mg PO QAM loratadine 10 mg tablet 10 mg PO QAM PRN Allergy Symptoms vitamin B complex 1 tab PO QAM metoprolol succinate 25 mg tablet,extended release 24 hr 12.5 mg PO QAM metformin 500 mg tablet,extended release 24hr 1,000 mg PO QPM acetaminophen 500 mg tablet (Tylenol Extra Strength) 1,000 mg PO Q8H PRN Pain aspirin 81 mg tablet,delayed release 81 mg PO QPM lisinopril 10 mg tablet 10 mg PO QAM DO NOT take the morning of surgery vitamin B complex 1 tab PO QAM lisinopril 10 mg tablet 10 mg PO QAM Take morning of surgery With a small sip of water, OTHERWISE NOTHING TO EAT OR DRINK AFTER MIDNIGHT: atorvastatin 40 mg tablet 40 mg PO QAM metoprolol succinate 25 mg tablet,extended release 24 hr 12.5 mg PO QAM acetaminophen 500 mg tablet (Tylenol Extra Strength) 1,000 mg PO Q8H PRN Pain (if needed) Take evening before surgery metformin 500 mg tablet,extended release 24hr 1,000 mg PO QPM acetaminophen 500 mg tablet (Tylenol Extra Strength) 1,000 mg PO Q8H PRN Pain (if needed) aspirin 81 mg tablet,delayed release 81 mg PO QPM (continue as normal unless told otherwise by surgeon) Other Notes If you have any questions please call us at [phone] or [phone] or [phone] or [phone]
--- NOTE | 2022-12-23 10:46 | Anesthesiology Consultation ---
Date of Service December 23, 2022 Assessment & Plan (1) Encounter for pre-operative examination: Chart Review Chart Review: Acceptable Risk for Surgery and Patient seen in Pre Admission Testing - Check BSG AM DOS - Pt NOT an ideal OPJ candidate due to comorbidities (scheduled as 23 obs) Per PAT appt on 12/23/22, patient denies any recent travel or large group activities. Pt is vaccinated for Covid. Will leave to surgeon's discretion if preop Covid testing needed. Educated on importance of using Covid precautions one week prior to surgery Patient seen by PCP 12/10/2022 = seen for preop evaluation. We will check labs and imaging. Defer EKG to cardiology which she has an appointment today. Can proceed as long as above and A1c are noted to be stable. Per PCP phone note 12/10/2022 = blood counts, kidney function, calcium, and A1c are all stable. No concerns to prevent surgery Seen by cardio 12/10/22= Patient presents for preoperative risk stratification regarding upcoming left knee surgery. Underwent right knee surgery last year and tolerated procedure well. Recovery unremarkable. Feeling well and offers no acute concerns. Hypertensionno medication changes. Coronary artery calcification on CT scan/dyslipidemianonischemic DSE April 2021. EKG today showing stable findings. Preoperative cardiovascular risk examinationin terms of preop risk assessment, per Humza criteria, patient was counseled that she would be placed at a low to moderate risk (less than 5%) for any adverse perioperative cardiovascular events associated with knee replacement surgery. Patient is well compensated from a cardiac standpoint without any concerning symptoms for angina. No other cardiac testing or interventions would further lower that risk. Patient is understanding and accepting of that risk and wishes to proceed with surgery. Right TKA 01/07/22= Done under SAB at L3-4 with two attempts Teaching & Discussion Pre-Anesthesia Teaching/Discussion Notes: Instructed NPO after midnight before surgery,except medications with 15 cc of water. Medication instructions provided according to the PAT guidelines. History Surgery Operation Date: 01/05/23 10:00 Proposed Procedures p Left Total Knee Arthroplasty - Kareem Desai MD Height/Weight Height: 5 ft Weight: 59.1 kg Allergies Allergy/AdvReac Type Severity Reaction Status Date / Time nickel Allergy Mild SKIN Verified 12/16/22 14:59 IRRITATION/RASH Medications Home Medications Medication Instructions Recorded Confirmed Last Taken atorvastatin 40 mg tablet 40 mg PO QAM 09/26/20 12/16/22 01/07/22 03:00 loratadine 10 mg tablet 10 mg PO QAM PRN Allergy Symptoms 09/26/20 12/16/22 01/06/22 17:30 vitamin B complex 1 tab PO QAM 09/26/20 12/16/22 01/06/22 17:30 metoprolol succinate 25 mg 12.5 mg PO QAM 12/07/21 12/16/22 01/07/22 03:00 tablet,extended release 24 hr metformin 500 mg tablet,extended 1,000 mg PO QPM 12/16/21 12/16/22 01/06/22 17:30 release 24hr acetaminophen 500 mg tablet 1,000 mg PO Q8H PRN Pain 12/16/22 12/16/22 Unknown (Tylenol Extra Strength) aspirin 81 mg tablet,delayed 81 mg PO QPM 12/16/22 12/16/22 Unknown release lisinopril 10 mg tablet 10 mg PO QAM 12/16/22 12/16/22 Unknown Past Medical History Medical History Carotid artery plaque <50% bilaterally per 2019 duplex Coronary artery calcification On CT scan- negative DSE 04/2021 per cardio records FH of CAD (follows with [facility] Cardio) Degenerative disc disease Lumbar area History of colon cancer S/p colectomy 2004- no chemo or XRT - no colostomy Hx of migraines Hyperlipidemia Hyperparathyroidism S/p parathyroidectomy per PCP records Following with [facility] Endocrinology- recent 24hr urine calcium normal Hypertension Pre-diabetes On Metformin Stress incontinence No current issues/stable Exercise / Class Metabolic Activity II 4-5 Yardwork/Stairs/Walk up hill (one flight of stairs - no chest pain or SOB ) Past Family History Family History Mother Family hx of colon cancer Family history of diabetes mellitus Grandmother (Maternal) Family history of diabetes mellitus Grandfather (Maternal) Family hx of colon cancer Other No family history of adverse response to anesthesia Past Surgical History Surgical History H/O parathyroidectomy 2 SURGERIES (did have hypercalcemia prior to surgery- improved s/p surgery- follows with endocrinology) History of arthroscopy right knee History of carpal tunnel release RT History of colon resection x2 from hx cancer no chemo or radiation History of colonoscopy History of salpingo-oophorectomy bilat History of tooth extraction History of total right knee replacement Past Anesthesia History No Hx of Anesthesia Complications and No Family Hx of Anesthesia Complications History of PONV No Hx of PONV and No Hx of Motion Sickness Social History Smoking Status: Former smoker tobacco type: cigarettes Do You Dip or Chew Tobacco: No Smoking End Date: 1984 Hx Alcohol Use: No Hx Substance Use: No substance use type: does not use Review of Systems Occ snoring- no hx of sleep study Patient denies chest pain, shortness of breath, dyspnea on exertion, reflux, cough, wheezing, palpitations. No hx of seizures, stroke, VA. No hx of blood clots or blood transfusions Physical Exam Vital Signs VITALS BP 127/76 P 65 TEMP 97.8 SP02 98% RESP 16 Constitutional no acute distress ENMT Mouth: no TMJ clicking Thyromental Distance: < 3.5 Finger Breadths (3.0) Mallampati Class: II Full upper denture Missing bottom molars Neck neck extension not limited Respiratory normal respiratory effort; no respiratory distress Auscultation: lungs clear to auscultation bilaterally; no wheezes Cardiovascular Rate/Rhythm: regular rate and regular rhythm Heart Sounds: no murmur Vessels: no carotid bruit Musculoskeletal Spine: + pain with cervical ROM (mild tightness ) Extremities: extremities normal to inspection Psychiatric Orientation: alert Lab Results Anesthesia Preop Results Results Anesthesia Widget: WBC 5.56 K/ul (4.8-10.8) 12/23/22 Hgb 11.5 g/dl (12.0-16.0) L 12/23/22 Hct 35.4 % (37.0-47.0) L 12/23/22 Plt 271 K/uL (130-400) 12/23/22 PT 11.2 Seconds (9.0-12.0) 12/23/22 PTT 27.3 Seconds (21.0-31.0) 12/23/22 INR 1.0 (0.9-1.1) 12/23/22 Urine Color Yellow 12/23/22 Urine Appearance Clear (Clear) 12/23/22 Urine pH 7.0 (4.5-7.5) 12/23/22 Urine Specific Cassel 1.004 (1.000-1.030) 12/23/22 Urine Protein Negative (Negative) 12/23/22 Urine Glucose (UA) Negative (Negative) 12/23/22 Urine Ketones Negative (Negative) 12/23/22 Urine Blood Negative (Negative) 12/23/22 Urine Nitrite Negative (Negative) 12/23/22 Urine Bilirubin Negative (Negative) 12/23/22 Urine Urobilinogen Negative (Negative) 12/23/22 Urine Leukocyte Esterase Negative (Negative) 12/23/22 Blood Type A Positive 12/23/22 Antibody Screen NEGATIVE 12/23/22 Testing Laboratory Results Anemia - chronic and stable from previous 12/10/22= SODIUM: 143 POTASSIUM:4.7 CHLORIDE: 106 CO2: 25 BUN: 16 CREATININE: 0.6 GLUCOSE: 94 HGB A1C: 6.3 Electrocardiogram Date: 12/10/22 Findings: + NSR @ (65bpm ) Normal EKG per cardio Chest X-Ray Date: 12/10/22 Findings: + NAD Stress Test Date: 04/15/21 Type: exercise (ECHO ) Resting EF: 60% Resting LV Function: normal Stress echo is probably negative for inducible ischemia, the septum is dyssynchronous with stress. Hypertensive BP response to stresspeak systolic pressure of 220 mmHg. Abnormal wall motion likely related to hypertension Stress EKG is equivocal for ischemia Adequate cardiovascular stress test as patient obtain 96% MPHR. 6.4 METS achieved. No significant arrhythmias were noted. Normal HR and hypertensive BP response to exercise. Patient denies chest discomfort reporting only fatigue at peak exercise. Grade 1 DD. LV wall thickness is normal. Mild MR. Other Testing Carotid duplex 07/11/2019 = right and left carotid artery duplex examination indicates evidence of less than 50% stenosis of bilateral internal carotid arteries. Antegrade flow to both vertebral arteries. COVID-19 Risk Screen Screening Information COVID-19 Screen Date: 12/23/22 Exposure 21 Days Family/Household +COVID Last 21 Days: No Exposure 10 Days Any COVID Exposure Last 10 Days: No Symptoms Last 10 Days Experienced COVID Sx Last 10 Days: No + COVID 0-90 Days COVID + in Last 0-90 Days: No Risk Plan COVID Risk Plan: No Risk Identified Patient Education COVID Preop Screening Education Complete: Yes
--- NOTE | 2022-12-30 08:21 | History & Physical Report ---
Date of Service December 30, 2022 Assessment & Plan (1) Primary osteoarthritis of left knee: Plan: Treatment options discussed with patient. She would like to proceed with knee replacement. Risks, benefits and alternatives to surgery including but not limited to infection, DVT, pain, stiffness, need for revision surgery, damage to blood vessels, damage to nerves, PE, , were discussed with the patient and they wish to proceed. Plan on left total knee arthroplasty scheduled for 01/05/23 at [facility] with Dr. Desai. Plan on aspirin 81mg BID for 1 mo post op for DVT prophylaxis. Plan on outpatient PT. Will plan on using Prineo glue system for skin closure due to nickel allergy. All questions answered. Follow up post op. History of Present Illness Chief Complaint: Left knee pain Primary Care Provider: Yari Loving MD 67yo female with HTN, high cholesterol, hx of colon Ca who presents with ongoing left knee pain. Pain interfering with her daily activity. She has failed conservative measures. She would like to proceed with knee replacement. Patient denies headaches, sweats, fevers, chills, double vision, blurred vision, cough, sore throat, dysphagia, chest pain, sob, wheezing, n/v/d/c, numbness, tingling, fatigue, urinary symptoms, mood disorders. ROS positive for left knee pain and stiffness. Allergies Allergy/AdvReac Type Severity Reaction Status Date / Time nickel Allergy Mild SKIN Verified 12/16/22 14:59 IRRITATION/RASH Home Medications Medication Instructions Recorded Confirmed Type atorvastatin 40 mg tablet 40 mg PO QAM 09/26/20 12/16/22 History loratadine 10 mg tablet 10 mg PO QAM PRN Allergy Symptoms 09/26/20 12/16/22 History vitamin B complex 1 tab PO QAM 09/26/20 12/16/22 History metoprolol succinate 25 mg 12.5 mg PO QAM 12/07/21 12/16/22 History tablet,extended release 24 hr metformin 500 mg tablet,extended 1,000 mg PO QPM 12/16/21 12/16/22 History release 24hr acetaminophen 500 mg tablet 1,000 mg PO Q8H PRN Pain 12/16/22 12/16/22 History (Tylenol Extra Strength) aspirin 81 mg tablet,delayed 81 mg PO QPM 12/16/22 12/16/22 History release lisinopril 10 mg tablet 10 mg PO QAM 12/16/22 12/16/22 History Past Med/Surg History Medical History Carotid artery plaque <50% bilaterally per 2019 duplex Coronary artery calcification On CT scan- negative DSE 04/2021 per cardio records FH of CAD (follows with [facility] Cardio) Degenerative disc disease Lumbar area History of colon cancer S/p colectomy 2004- no chemo or XRT - no colostomy Hx of migraines Hyperlipidemia Hyperparathyroidism S/p parathyroidectomy per PCP records Following with [facility] Endocrinology- recent 24hr urine calcium normal Hypertension Pre-diabetes On Metformin Stress incontinence No current issues/stable Surgical History H/O parathyroidectomy 2 SURGERIES (did have hypercalcemia prior to surgery- improved s/p surgery- follows with endocrinology) History of arthroscopy right knee History of carpal tunnel release RT History of colon resection x2 from hx cancer no chemo or radiation History of colonoscopy History of salpingo-oophorectomy bilat History of tooth extraction History of total right knee replacement Family History Mother Family hx of colon cancer Family history of diabetes mellitus Grandmother (Maternal) Family history of diabetes mellitus Grandfather (Maternal) Family hx of colon cancer Other No family history of adverse response to anesthesia Social History Smoking Status: Former smoker Second Hand Exposure: No; Do You Dip or Chew Tobacco: No; Hx Alcohol Use: No Hx Substance Use: No Preferred Language: Guamanian Communication Ability: Effective 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 Beliefs That Will Affect Care: None Current Living Situation: Spouse Feels Safe at Home: Yes Assistive Devices: Denture - Upper and Glasses Review of Systems All systems reviewed & are unremarkable except as noted in HPI & below Physical Exam Constitutional: well developed and well nourished; no acute distress Eyes: PERRL, conjunctivae normal, anicteric sclerae ENMT: external ear and nose normal, oropharynx normal Neck: trachea midline, no thyromegaly Respiratory: normal respiratory effort, lungs clear to auscultation Cardiovascular: RRR, no murmur, no edema Musculoskeletal: Left knee: Varus alignment. Mild effusion. Medial joint line tenderness. Positive Rubio's. Stable to valgus and varus stress test. ROM 10-125 degrees. Skin: no rashes, warm and dry Neurologic: patellar DTR's 2+ bilat, sensation intact Psychiatric: A+Ox3, euthymic affect Results & Data Diagnostic Findings Left knee radiographs: [id number] medial compartment with periarticular osteophyte formation. There is subchondral sclerosis. Varus alignment.
[2023-01-05] MEDS ORDERED: ROPIVACAINE 0.5% HCL/PF 150 MG, BUPIVACAINE 0.75% MPF 20 ML, EPINEPHrine 30MG/30ML (OR ... INSTIL SCH (06:00)
[2023-01-05] MEDS ORDERED: ACETAMINOPHEN 500 MG TAB PO SCH (06:00)
[2023-01-05] MEDS ORDERED: FAMOTIDINE 20 MG TAB PO SCH (06:00)
[2023-01-05] MEDS ORDERED: ceFAZolin 2000MG 2,000 MG/15 ML SYR IV SCH (06:00)
[2023-01-05] MEDS ORDERED: METOCLOPRAMIDE HCL 10 MG TABLET PO SCH (06:00)
[2023-01-05] MEDS ORDERED: LR 500ML BOLUS, THEN 15ML/HR IV SCH (06:00)
[2023-01-05] MEDS ORDERED: CeleBREX 200 MG CAP PO SCH (06:00)
[2023-01-05] MEDS ORDERED: GABAPENTIN 300 MG CAP PO SCH (06:00)
[2023-01-05] MEDS ORDERED: TRANEXAMIC ACID 1,000 MG **IV Pre-op IV SCH (06:00)
[2023-01-05] MEDS ORDERED: TRANEXAMIC ACID 1,000 MG **IV Intra-op IV SCH (06:00)
[2023-01-05] MEDS ORDERED: ROPIVACAINE 0.5% 5 MG/ML 30 ML VIAL ONE (06:11)
[2023-01-05] MEDS ORDERED: BUPIVACAINE 0.5 % 5 MG/1 ML PF 10ML VIAL ONE (06:11)
[2023-01-05] MEDS ORDERED: DEXAMETHASONE SOD INJ 4 MG/ML VIAL ONE (06:47)
[2023-01-05] MEDS ORDERED: ONDANSETRON INJ 2 MG/ML 2 ML VIAL ONE (06:47)
[2023-01-05] MEDS ORDERED: LIDOCAINE 2% 2 ML VIAL/AMP(20MG/ML) INFIL ONE ×2 (06:47→07:53)
[2023-01-05] MEDS ORDERED: PROPOFOL IV EMULSION 10 MG/ML 20 ML VIAL IV ONE ×3 (06:47→06:49)
[2023-01-05] MEDS ORDERED: MIDAZOLAM HCL 1 MG/ML 2ML VIAL ONE (06:48)
[2023-01-05] MEDS ORDERED: fentaNYL citrate PF 100 MCG/2 ML VIAL ONE ×2 (06:48→08:18)
--- NOTE | 2023-01-05 07:09 | History & Physical Bridge Note ---
Date of Service January 05, 2023 History & Physical Bridge Note I have examined the patient, reviewed the History & Physical and in the interval since the performance of the History & Physical I have noted the following changes of clinical significance: no changes noted
[2023-01-05] MEDS ORDERED: ORTHO JOINT ANESTHETIC ONE (07:44)
[2023-01-05] MEDS ORDERED: ePHEDrine sulfate 50 MG/ML SYR ONE (07:46)
[2023-01-05] MEDS ORDERED: ATROPINE SULFATE 0.1 MG/ML 10ML SYR IV PRN (08:04)
[2023-01-05] MEDS ORDERED: ePHEDrine sulfate 50 MG/ML AMP IV PRN (08:04)
[2023-01-05] MEDS ORDERED: PROMETHAZINE HCL 12.5 MG in SODIUM CHLORIDE 0.9% 50 ML IV PRN (08:04)
[2023-01-05] MEDS ORDERED: HYDROmorphone INJ 2 MG/ML SYR/VIAL IV PRN (08:04)
[2023-01-05] MEDS ORDERED: ONDANSETRON INJ 2 MG/ML 2 ML VIAL IV PRN ×2 (08:04→11:26)
[2023-01-05] MEDS ORDERED: hydrALAZINE HCL 20 MG/ML VIAL ONE (08:39)
[2023-01-05] MEDS ORDERED: PHENYLEPHRINE 100MCG/ML 5ML SYR ONE (09:29)
--- NOTE | 2023-01-05 10:00 | Operative Report ---
Post Operative Report Pre & Post Diagnosis Operation Date: 01/05/23 07:15 Pre-Op Diagnosis: Left Knee Osteoarthritis Post-Op Diagnosis: Left Knee Osteoarthritis I identified the patient and participated in the time-out.: Yes Procedure Operation Date: 01/05/23 07:15 Actual Procedures p Left Total Knee Arthroplasty, Cemented, lateral release- Kareem Desai MD Surgeon Kareem Desai MD Claims Service Adjustor J Carlos ROSARIO Estimated Blood Loss 5 Findings Consistent with Post-Op Diagnosis Specimens bone cuts Drains 2 Hemovac Anesthesia Type General Regional Complications none Disposition Disposition: Recovery Room Indications 67-year-old female with chronic left knee osteoarthritis failed conservative management. Radiographs demonstrated [id number] medial compartment with a semaj us knee and advanced patellofemoral osteoarthritis as well. Patient has successful right knee replacement. Description of Procedure The patient was taken to the operating room and anesthetized under general regional block anesthesia. Patient was placed supine on the the operating table. A pneumatic tourniquet was placed about the left upper thigh. The knee exam demonstrated thin leg no pseudolaxity varus knee no effusion good range of motion. The involved leg was elevated exsanguinated with Esmarch bandage and the pneumatic tourniquet was raised to 300 millimeters mercury. A longitudinal incision was made across the anterior knee. Skin flaps were elevated. An incision was made into the medial retinaculum and extended up into the mid third of the quadriceps tendon and extended down to the tibial tubercle. Intra- articular findings demonstrated medial compartment and patellofemoral osteoarthritis. There was grade 4 medial compartment osteoarthritis [id number] with grade 4 patellofemoral medial facet osteoarthritis. The knee was exposed by excising cruciate ligaments and menisci. The infrapatellar fat pad was resected. The fat pad over the anterior femur at the upper aspect of the articular surface was resected for placement of the component in that area. A subperiosteal peel lateral release was performed around the patella. The [employer] Nephew journey 2.0 posterior stabilized total knee arthroplasty system was utilized for the procedure. The custom femoral cutting guide was pinned in position. The distal femoral cut was made. The size 3, 5 in 1 cutting block was placed. The anterior posterior and chamfer cuts were made. The knee was extended and a free hand cut technique was performed to the patella. The patella with was measured and the width was reproduced using a 29 symmetrical patella component. 3 drill holes are made for the patella component pegs. The tibia was then subluxed. The custom tibial cutting block was pinned in position and the proximal tibial cut was made with the oscillating saw. The size 2 tibial trial was externally rotated in line with the tibial tubercle and pinned in position. The punch for the stem was used. The femoral trial was inserted and centered the notch cutting devices were used and the collet was placed. Tibial trials were used for the insert. The size 11 posterior stabilized trial gave balanced ligaments through full range of motion. Patella tracking was assessed with range of motion. The patella tracked with some slight lift off and I felt a lateral release was required so a lateral release was performed leaving the synovium intact and the patella tracks centrally. The trials were removed. The Orthomix anesthetic cocktail was injected per protocol. The cut bone surfaces and soft tissue were copiously irrigated with pulsatile lavage saline solution. The final components were cemented with Refobacin cement. The final components were Ellis [employer] Nephew journey 2.0 size 3 left posterior stabilized femoral component, size 2 left tibial component, 11 mm left posterior stabilized tibial polyethylene insert, 29 mm symmetrical polyethylene patella. After the cement cured, the Betadine soak was used for 3 minutes. The knee was then copiously irrigated with pulsatile lavage saline solution. 2 drains were brought out laterally connected to Hemovac. The quadriceps tendon and medial retinaculum were closed with interrupted [id number] #1 Vicryl sutures. The knee was taken through full range of motion and repair was secure. Knee range of motion was 0 through 135 degrees. the subcutaneous tissues were closed with 2-0 Vicryl sutures. The skin was closed with strata fix and Prineo glue system. A radha superficial wound VAC was applied. The tourniquet was let down and the patient had good capillary refill to the extremity. The patient tolerated the procedure well. My physician family medicine physician assistant Иван ROSARIO participated as certified surgical tech/first assistant and was integral part in all aspects of the procedure including prepping, draping, leg positioning, soft tissue retraction, instrument management and assisted in the closure, radha application,dressings application and will participate in postoperative care the patient. I attest to the content of the Intraoperative Record and any orders documented therein. Any exceptions are noted below.
[2023-01-05] MEDS: fentaNYL citrate PF 100 MCG/2 ML VIAL IV PRN ×2 (10:30→10:40)
--- NOTE | 2023-01-05 10:35 | XRay Report ---
XR knee LT 1 or 2V routine CLINICAL HISTORY: Surgical Post Op TECHNIQUE: 2 views of the left knee were obtained. Comparison: None available at the time of this dictation. FINDINGS: Patient is status post total knee arthroplasty with expected postsurgical changes including soft tiss ue swelling and subcutaneous emphysema. No periarticular lucency or hardware fracture is seen. IMPRESSION: Expected postoperative appearance status post placement of total knee arthroplasty. ACT 112: Negative or not required by law. Electronically signed by: Oracio Rutledge M.D. 01/05/2023 10:34 AM
[2023-01-05] MEDS ORDERED: HYDROmorphone INJ 0.5 MG/0.5 ML SYR IV PRN (11:26)
[2023-01-05] MEDS ORDERED: METOCLOPRAMIDE HCL INJ 5 MG/ML 2 ML VIAL IV PRN (11:26)
[2023-01-05] MEDS ORDERED: NALOXONE HCL 0.4 MG/1 ML VIAL/CARP IV PRN (11:26)
[2023-01-05] MEDS ORDERED: MAGNESIUM HYDROXIDE SUSP 30 ML UDC PO PRN (11:26)
[2023-01-05] MEDS ORDERED: LORATADINE 10 MG TAB PO PRN (11:26)
[2023-01-05] MEDS ORDERED: bisacodyL 10 MG SUPP PR PRN (11:26)
[2023-01-05] MEDS: oxyCODONE HCL IR 5 MG TAB (IMMEDIATE RELEASE) PO PRN (11:55)
[2023-01-05] MEDS: SODIUM CHLORIDE 0.9% 1000ML 1,000 ML IV SCH ×2 (11:56→22:03)
--- NOTE | 2023-01-05 12:38 | Consultation ---
Date of Consultation January 05, 2023 Assessment & Plan (1) S/P total knee arthroplasty: Post op day# 0 S/P Left TKA by Dr Desai EBL#5ml -pain management per ortho -wound management per ortho -PT/OT as appropriate -DVT prophylaxis per ortho -incentive spirometry -monitor H&H for acute blood loss anemia; pre-op Hgb: 11.5 (2) Hypertension: Stable -Continue lisinopril, metoprolol succinate (3) Pre-diabetes: A1c: 6.3 on 12/03/2022 -Hold home metformin -NovoLog sliding scale per protocol (4) Hyperlipidemia: -Continue atorvastatin DVT Prophylaxis -SCDs, Aspirin 81mg BID per ortho Disposition per primary service Follows with Dr Loving for routine care Pt was seen and care coordinated with Dr Sanchez. See addendum Thank you for this consultation. We will follow the patient with you during their hospital stay. You can reach a [facility] via [employer] Supervising Physician Co-Signing Physician Notes Consult for post op management of left tka . doing well at this time Neck: supple, trachea midline Lungs: clear, no respiratory distress, no wheezing/rhonchi/rales CV: RRR, no murmur, no pretibial edema Abd: normal BS, soft, non-tender Ext: no cyanosis, no calf tenderness; LLE: +surgical dressing and KASSIDY wrap in place, +hemovac drain with serosanguineous drainage, bilateral pedal dorsiflexion, plantar flexion intact, BLE sensation to light touch intact, distal pulses intact Neuro: A&O x 3, History of Present Illness Requesting Physician: Dr Desai Reason for Consultation: Postop medical management Attending Physician: Kareem Desai MD History of Present Illness Patient is 67 y/o F with PMH HTN, HLD, pre-diabetes seen in medical consultation s/p left total knee arthroplasty today by Dr Desai. Post op patient reports is doing well. Pain currently controlled. Has been up with assistance to ambulate to bathroom and urinated without difficulty. Last BM yesterday. Denies fever/chills, N/V/D/C, GRIJALVA, dizziness, CP, SOB, cough, sore throat, abdominal pain, extremity weakness, extremity edema, rashes, dysuria, hematuria. Allergies Allergy/AdvReac Type Severity Reaction Status Date / Time nickel Allergy Mild SKIN Verified 01/05/23 05:43 IRRITATION/RASH Home Medications Medication Instructions Recorded Confirmed Type atorvastatin 40 mg tablet (Lipitor) 40 mg PO QAM 09/26/20 01/05/23 History loratadine 10 mg tablet (Claritin) 10 mg PO QAM PRN Allergy Symptoms 09/26/20 01/05/23 History vitamin B complex 1 tab PO QAM 09/26/20 01/05/23 History metoprolol succinate 25 mg 12.5 mg PO QAM 12/07/21 01/05/23 History tablet,extended release 24 hr metformin 500 mg tablet,extended 1,000 mg PO QPM 12/16/21 01/05/23 History release 24hr acetaminophen 500 mg tablet 1,000 mg PO Q8H PRN Pain 12/16/22 01/05/23 History (Tylenol Extra Strength) aspirin 81 mg tablet,delayed 81 mg PO QPM 12/16/22 01/05/23 History release lisinopril 10 mg tablet 10 mg PO QAM 12/16/22 01/05/23 History Patient History Medical History Carotid artery plaque <50% bilaterally per 2018 duplex Coronary artery calcification On CT scan- negative DSE 04/2021 per cardio records FH of CAD (follows with [facility] Cardio) Degenerative disc disease Lumbar area History of colon cancer S/p colectomy 2004- no chemo or XRT - no colostomy Hx of migraines Hyperlipidemia Hyperparathyroidism S/p parathyroidectomy per PCP records Following with [facility] Endocrinology- recent 24hr urine calcium normal Hypertension Pre-diabetes On Metformin Stress incontinence No current issues/stable Surgical History (Updated 01/05/23 @ 12:59 by Lisa Garcia PA-C) H/O parathyroidectomy 2 SURGERIES (did have hypercalcemia prior to surgery- improved s/p surgery- follows with endocrinology) History of arthroscopy right knee History of carpal tunnel release RT History of colon resection x2 from hx cancer no chemo or radiation History of colonoscopy History of salpingo-oophorectomy bilat History of tooth extraction History of total right knee replacement S/P total knee arthroplasty Left knee, 01/05/23. Dr Desai. [facility] Family History Mother Family hx of colon cancer Family history of diabetes mellitus Grandmother (Maternal) Family history of diabetes mellitus Grandfather (Maternal) Family hx of colon cancer Other No family history of adverse response to anesthesia Social History Smoking Status: Former smoker Smoking End Date: 1984; Second Hand Exposure: No; Do You Dip or Chew Tobacco: No; Tobacco Cessation Education Requested by Patient: No Hx Alcohol Use: No Hx Substance Use: No Preferred Language: Belarusian Communication Ability: Effective Educational Psychology Teacher Required: No Beliefs That Will Affect Care: None Current Living Situation: Spouse Other Information That Helps Us Care for You: No Feels Safe at Home: Yes Safety Concerns: Feels Safe At This Time Assistive Devices: Walker Review of Systems Review of Systems: All systems reviewed & are unremarkable except as noted in HPI & below Physical Exam Physical Exam: General: no distress, WDWN Head: normocephalic, atraumatic Eyes: conjunctiva non-injected, anicteric ENT: normal inspection external ears, nose, mucous membranes moist Neck: supple, trachea midline Lungs: clear, no respiratory distress, no wheezing/rhonchi/rales CV: RRR, no murmur, no pretibial edema Abd: normal BS, soft, non-tender Ext: no cyanosis, no calf tenderness; LLE: +surgical dressing and KASSIDY wrap in place, +hemovac drain with serosanguineous drainage, bilateral pedal dorsiflexion, plantar flexion intact, BLE sensation to light touch intact, distal pulses intact Neuro: A&O x 3, no focal deficits noted, normal affect Skin: warm, dry Results & Data Vital Signs (Past 12 Hours) Vital Signs Temp Pulse Pulse Resp BP Pulse Ox O2 Del Method 01/05/23 12:15 36.5 C 75 18 121/65 96 Nasal Cannula 01/05/23 11:45 36.7 C 74 16 104/59 L 95 Nasal Cannula 01/05/23 11:15 36.7 C 78 16 99/58 L 100 Nasal Cannula 01/05/23 10:50 36.5 C 74 13 99/52 L 99 Nasal Cannula 01/05/23 10:40 76 14 107/53 L 95 Oxymask 01/05/23 10:30 80 16 106/57 L 97 Oxymask 01/05/23 10:20 87 18 116/61 97 Oxymask 01/05/23 10:10 79 16 106/58 L 98 Oxymask 01/05/23 10:03 36.2 C L 87 16 116/61 97 Oxymask 01/05/23 05:47 36.5 C 69 18 178/74 H 97 Room Air O2 Flow Rate 01/05/23 12:15 2 01/05/23 11:45 2 01/05/23 11:15 2 01/05/23 10:50 2 01/05/23 10:40 2 01/05/23 10:30 3 01/05/23 10:20 5 01/05/23 10:10 5 01/05/23 10:03 7 01/05/23 05:47
[2023-01-05] MEDS ORDERED: GLUCAGON FOR INJ 1 MG VIAL SQ PRN (12:49)
[2023-01-05] MEDS ORDERED: CARBOHYDRATES FOR HYPOGLYCEMIA PO PRN (12:49)
[2023-01-05] MEDS ORDERED: DEXTROSE 50% 50 ML SYRINGE IV PRN (12:49)
[2023-01-05] MEDS ORDERED: GLUCOSE 10 TAB/TUBE PO PRN (12:49)
[2023-01-05] MEDS ORDERED: GLUCOSE 40% GEL 15 GM TUBE PO PRN (12:49)
[2023-01-05] MEDS: ACETAMINOPHEN 500 MG TAB PO SCH ×2 (14:08→20:59)
--- NOTE | 2023-01-05 15:42 | Anesthesiology Progress Note ---
Date of Service January 05, 2023 Anesthesia Post Procedure Vital Signs Vital Signs: Temp Pulse Pulse Resp BP Pulse Ox O2 Del Method 01/05/23 14:15 36.6 C 71 18 93/52 L 94 Room Air 01/05/23 11:30 Room Air 01/05/23 13:32 36.5 C 76 18 115/64 96 Room Air 01/05/23 12:15 36.5 C 75 18 121/65 96 Nasal Cannula 01/05/23 11:45 36.7 C 74 16 104/59 L 95 Nasal Cannula 01/05/23 11:15 36.7 C 78 16 99/58 L 100 Nasal Cannula 01/05/23 10:50 36.5 C 74 13 99/52 L 99 Nasal Cannula 01/05/23 10:40 76 14 107/53 L 95 Oxymask 01/05/23 10:30 80 16 106/57 L 97 Oxymask 01/05/23 10:20 87 18 116/61 97 Oxymask 01/05/23 10:10 79 16 106/58 L 98 Oxymask 01/05/23 10:03 36.2 C L 87 16 116/61 97 Oxymask 01/05/23 05:47 36.5 C 69 18 178/74 H 97 Room Air O2 Flow Rate 01/05/23 14:15 01/05/23 11:30 2 01/05/23 13:32 01/05/23 12:15 2 01/05/23 11:45 2 01/05/23 11:15 2 01/05/23 10:50 2 01/05/23 10:40 2 01/05/23 10:30 3 01/05/23 10:20 5 01/05/23 10:10 5 01/05/23 10:03 7 01/05/23 05:47 Pain Intensity Left Knee: Pain Intensity: 2 Transfer of Care Handoff Completed per policy Notes Mental Status: alert / awake / arousable and participated in evaluation Patient Amnestic to Procedure: Yes Nausea / Vomiting: adequately controlled Pain: adequately controlled Airway Patency, RR, SpO2: stable & adequate BP & HR: stable & adequate Hydration State: stable & adequate Anesthetic Complications: no major complications apparent
[2023-01-05] MEDS: ceFAZolin 1000MG 1,000 MG/7.5 ML SYR IV SCH ×2 (16:34→23:06)
[2023-01-05] MEDS: INSULIN ASPART PER UNIT CHARGE SC SCH ×2 (18:04→21:49)
[2023-01-05] MEDS: ASPIRIN 81 MG ECTAB PO SCH (20:56)
[2023-01-05] MEDS: DOCUSATE SODIUM 100 MG CAP PO SCH (20:56)
[2023-01-05] MEDS: CeleBREX 200 MG CAP PO SCH (20:57)
[2023-01-05] MEDS ORDERED: SENNA 8.6 MG TAB PO SCH (21:00)
[2023-01-06] MEDS: oxyCODONE HCL IR 5 MG TAB (IMMEDIATE RELEASE) PO PRN (02:09)
[2023-01-06] MEDS: ACETAMINOPHEN 500 MG TAB PO SCH (06:22)
[2023-01-06] MEDS: INSULIN ASPART PER UNIT CHARGE SC SCH (07:12)
[2023-01-06 07:16] LABS: Hematocrit (blood only) 30.1 % (37.0-47.0); Hemoglobin 9.9 g/dl (12.0-16.0); Mean Corpuscular Hemoglobin 28.4 pg (25.0-34.0); Mean Corpuscular Hgb Conc 32.9 g/dL (32.0-36.0); Mean Corpuscular Volume 86.5 fL (80.0-100.0); Mean Platelet Volume 11.5 fL (9.4-12.4); Platelet Count 256 K/uL (130-400); RDW Coefficient of Variation 13.8 % (11.5-14.5); RDW Standard Deviation 43.5 fL (36.4-46.3); Red Blood Count 3.48 M/uL (4.20-5.40); White Blood Count 13.77 K/ul (4.8-10.8)
--- NOTE | 2023-01-06 07:36 | Orthopedic Progress Note ---
Date of Service January 06, 2023 Assessment & Plan (1) S/P total knee arthroplasty: Plan: POD#1 Left TKA -PT/OT -Pain management as written -DVT prophylaxis-SCDs, TEDs, aspirin 81mg BID -AM labs-Hgb 9.9 from 11 preop acute blood loss anemia due to surgical loss vs dilutional. Patient is asymptomatic. -D/C planning-plan on discharge home today after PT. Admission and Anticipated Discharge Date Admission Date: January 05, 2023 Subjective Patient is POD#1 left TKA. She is doing well this morning. Pain is minimal. No other complaints. Denies chest pain, sob, dizziness, GRIJALVA, fever/chills, n/v/d. Review of Systems Review of Systems: All systems reviewed & are unremarkable except as noted in Subjective Physical Exam Physical Exam: Left knee dressing is c/d/i, toes mobile, good dorsiflexion, no calf tenderness, able to do SLR. Distally n/v status and sensation grossly intact. Constitutional: WD/WN, vitals as above Results & Data Vital Signs (Past 12 Hours) Vital Signs Temp Pulse Resp BP Pulse Ox O2 Del Method 01/06/23 06:27 36.4 C L 75 16 133/61 95 Room Air 01/06/23 02:50 36.6 C 61 16 118/64 95 Room Air 01/05/23 21:54 36.6 C 65 16 116/65 96 Room Air Laboratory Results Lab Results 01/05/23 01/05/23 01/05/23 Range/Units 05:27 17:04 20:58 WBC (4.8-10.8) K/ul RBC (4.20-5.40) M/uL Hgb (12.0-16.0) g/dl Hct (37.0-47.0) % MCV (80.0-100.0) fL MCH (25.0-34.0) pg MCHC (32.0-36.0) g/dL RDW Std Deviation (36.4-46.3) fL RDW Coeff of Temo (11.5-14.5) % Plt Count (130-400) K/uL MPV (9.4-12.4) fL POC Glucose 100 H 135 H 133 H (70-99) mg/dl SARS-CoV-2, RNA, NAAT (NEGATIVE) 01/05/23 01/06/23 01/06/23 Range/Units Unknown 06:16 06:42 WBC 13.77 H (4.8-10.8) K/ul RBC 3.48 L (4.20-5.40) M/uL Hgb 9.9 L (12.0-16.0) g/dl Hct 30.1 L (37.0-47.0) % MCV 86.5 (80.0-100.0) fL MCH 28.4 (25.0-34.0) pg MCHC 32.9 (32.0-36.0) g/dL RDW Std Deviation 43.5 (36.4-46.3) fL RDW Coeff of Temo 13.8 (11.5-14.5) % Plt Count 256 (130-400) K/uL MPV 11.5 (9.4-12.4) fL POC Glucose 135 H (70-99) mg/dl SARS-CoV-2, RNA, NAAT NEGATIVE (NEGATIVE)
[2023-01-06] MEDS: CeleBREX 200 MG CAP PO SCH (07:54)
[2023-01-06] MEDS: DOCUSATE SODIUM 100 MG CAP PO SCH (07:55)
[2023-01-06] MEDS: ASPIRIN 81 MG ECTAB PO SCH (07:55)
[2023-01-06 08:03] LABS: Calcium 9.2 mg/dl (8.6-10.3); Potassium 3.7 mmol/L (3.5-5.1)
[2023-01-06 08:09] LABS: BUN Creatinine Ratio 24.7 (10-20); Creatinine Clr Calc Pharmacy 53.2 ml/min; Est GFR (African American) 86.5 ml/min; Est GFR (Non-African American) 74.6 ml/min
[2023-01-06] MEDS ORDERED: lisinopril 10 MG TAB PO SCH (09:00)
[2023-01-06] MEDS ORDERED: MULTIVITAMIN TAB PO SCH (09:00)
[2023-01-06] MEDS ORDERED: METOPROLOL SUCC 25MG EXT REL TAB PO SCH (09:00)
[2023-01-06] MEDS ORDERED: ATORVASTATIN 40 MG TAB PO SCH (09:00)
[2023-01-06] MEDS ORDERED: VITAMIN B COMPLEX TAB PO SCH (09:00)
--- NOTE | 2023-01-06 14:09 | Hospitalist Progress Note ---
Date of Service January 06, 2023 Assessment & Plan (1) S/P total knee arthroplasty: Plan: POD#[address] Desai Activity and wound care orders as per ortho Pain control with bowel regimen PT/OT Monitor H/H for acute blood loss anemia and transfuse blood products PRN EBL 5ml Hgb 9.9 (preop 11.5) (2) Hypertension: Plan: BP controlled, continue lisinopril and metoprolol (3) Pre-diabetes: Plan: A1c: 6.3 on 12/03/2022 Hold home metformin NovoLog sliding scale per protocol (4) Hyperlipidemia: Plan: Continue atorvastatin DVT PROPHYLAXIS ASA 81 mg twice daily as per Ortho Patient seen in collaboration with Dr. Prince. Thank you for this consultation. We will follow the patient with you during their hospital stay. You can reach a member of the [facility] Team 21/02 via the [facility] role in [place] [employer]. Admission and Anticipated Discharge Date Admission Date: January 05, 2023 Supervising Physician Co-Signing Physician Notes Patient seen and examined independently. Discussed with above provider. Patient is comfortable; not in any distress. She is walking with help of walker. Pain well controlled. To be discharged by primary team today. Follow-up with PCP as needed. Subjective Follow-up for medical management, s/p left TKA. Patient seen and examined. Sitting up in the chair. Offers no complaints, reports pain is well controlled. Eager to be discharged. Denies chest pain or shortness of breath. Urinating without difficulty, no BM but + flatus. Denies abdominal pain and nausea. Physical Exam Constitutional: WD/WN, vitals as above no acute distress Respiratory: normal respiratory effort, lungs clear to auscultation Cardiovascular: Rate/Rhythm: regular rate and regular rhythm Vessels: normal peripheral pulses Extremities: no edema Gastrointestinal (Abdomen): Percussion/Palpation: abdomen soft; abdomen nontender Musculoskeletal: S/p left knee surgery, dressing CDI, CSM checks intact LLE Skin: no rashes, warm and dry Neurologic: no focal motor deficits Psychiatric: A+Ox3, euthymic affect Results & Data Results & Data Vital Signs (Past 12 Hours) Vital Signs Temp Pulse Resp BP Pulse Ox O2 Del Method 01/06/23 06:27 36.4 C L 75 16 133/61 95 Room Air 01/06/23 02:50 36.6 C 61 16 118/64 95 Room Air Laboratory Results Short CBC 01/06/23 Range/Units 06:42 WBC 13.77 H (4.8-10.8) K/ul Hgb 9.9 L (12.0-16.0) g/dl Hct 30.1 L (37.0-47.0) % Plt Count 256 (130-400) K/uL BMP 01/06/23 06:42 Sodium 136 Potassium 3.7 Chloride 105 Carbon Dioxide 23 BUN 20 Creatinine 0.81 Glucose 118 H Calcium 9.2
--- NOTE | 2023-01-07 08:16 | Discharge Summary ---
Date of Service January 07, 2023 Admission HPI Per Admitting Provider 67yo female with HTN, high cholesterol, hx of colon Ca who presents with ongoing left knee pain. Pain interfering with her daily activity. She has failed conservative measures. She would like to proceed with knee replacement. Patient denies headaches, sweats, fevers, chills, double vision, blurred vision, cough, sore throat, dysphagia, chest pain, sob, wheezing, n/v/d/c, numbness, tingling, fatigue, urinary symptoms, mood disorders. ROS positive for left knee pain and stiffness. Admission Exam Per Admitting Provider Constitutional: well developed and well nourished; no acute distress Eyes: PERRL, conjunctivae normal, anicteric sclerae ENMT: external ear and nose normal, oropharynx normal Neck: trachea midline, no thyromegaly Respiratory: normal respiratory effort, lungs clear to auscultation Cardiovascular: RRR, no murmur, no edema Musculoskeletal: Left knee: Varus alignment. Mild effusion. Medial joint line tenderness. Positive Rubio's. Stable to valgus and varus stress test. ROM 10-125 degrees. Skin: no rashes, warm and dry Neurologic:M patellar DTR's 2+ bilat, sensation intact Psychiatric: A+Ox3, euthymic affect Principal Diagnosis Left knee OA Discharge Exam Left knee dressing is c/d/i, toes mobile, good dorsiflexion, no calf tenderness, able to do SLR. Distally n/v status and sensation grossly intact. Discharge Data Allergies Allergy/AdvReac Type Severity Reaction Status Date / Time nickel Allergy Mild SKIN Verified 01/05/23 05:43 IRRITATION/RASH Consultations 12/31/22 12:57 Consult Hospitalist Routine Procedures Performed Operation Date: 01/05/23 07:15 Actual Procedures p Left Total Knee Arthroplasty, Cemented.(Left) - Kareem Desai MD Ordered Studies 01/05/23 05:00 US - OR guided needle placemen Routine Hospital Course (1) S/P total knee arthroplasty: POD#1 Left TKA -PT/OT -Pain management as written -DVT prophylaxis-SCDs, TEDs, aspirin 81mg BID -AM labs-Hgb 9.9 from 11 preop acute blood loss anemia due to surgical loss vs dilutional. Patient is asymptomatic. -D/C planning-plan on discharge home today after PT. Lab Results 01/05/23 01/05/23 01/05/23 Range/Units 05:27 17:04 20:58 WBC (4.8-10.8) K/ul RBC (4.20-5.40) M/uL Hgb (12.0-16.0) g/dl Hct (37.0-47.0) % MCV (80.0-100.0) fL MCH (25.0-34.0) pg MCHC (32.0-36.0) g/dL RDW Std Deviation (36.4-46.3) fL RDW Coeff of Temo (11.5-14.5) % Plt Count (130-400) K/uL MPV (9.4-12.4) fL Sodium (136-145) mmol/L Potassium (3.5-5.1) mmol/L Chloride (98-107) mmol/L Carbon Dioxide (21-32) mmol/L Anion Gap (3-11) BUN (6-23) mg/dl Creatinine (0.6-1.2) mg/dl Est Cr Clr Drug Dosing ml/min Est GFR ( Amer) ml/min Est GFR (Non-Af Amer) ml/min BUN/Creatinine Ratio (10-20) Glucose (70-99(Fasting)) mg/dl POC Glucose 100 H 135 H 133 H (70-99) mg/dl Calcium (8.6-10.3) mg/dl SARS-CoV-2, RNA, NAAT (NEGATIVE) 01/05/23 01/06/23 01/06/23 Range/Units Unknown 06:16 06:42 WBC 13.77 H (4.8-10.8) K/ul RBC 3.48 L (4.20-5.40) M/uL Hgb 9.9 L (12.0-16.0) g/dl Hct 30.1 L (37.0-47.0) % MCV 86.5 (80.0-100.0) fL MCH 28.4 (25.0-34.0) pg MCHC 32.9 (32.0-36.0) g/dL RDW Std Deviation 43.5 (36.4-46.3) fL RDW Coeff of Temo 13.8 (11.5-14.5) % Plt Count 256 (130-400) K/uL MPV 11.5 (9.4-12.4) fL Sodium (136-145) mmol/L Potassium (3.5-5.1) mmol/L Chloride (98-107) mmol/L Carbon Dioxide (21-32) mmol/L Anion Gap (3-11) BUN (6-23) mg/dl Creatinine (0.6-1.2) mg/dl Est Cr Clr Drug Dosing ml/min Est GFR ( Amer) ml/min Est GFR (Non-Af Amer) ml/min BUN/Creatinine Ratio (10-20) Glucose (70-99(Fasting)) mg/dl POC Glucose 135 H (70-99) mg/dl Calcium (8.6-10.3) mg/dl SARS-CoV-2, RNA, NAAT NEGATIVE (NEGATIVE) 01/06/23 Range/Units 06:42 WBC (4.8-10.8) K/ul RBC (4.20-5.40) M/uL Hgb (12.0-16.0) g/dl Hct (37.0-47.0) % MCV (80.0-100.0) fL MCH (25.0-34.0) pg MCHC (32.0-36.0) g/dL RDW Std Deviation (36.4-46.3) fL RDW Coeff of Temo (11.5-14.5) % Plt Count (130-400) K/uL MPV (9.4-12.4) fL Sodium 136 (136-145) mmol/L Potassium 3.7 (3.5-5.1) mmol/L Chloride 105 (98-107) mmol/L Carbon Dioxide 23 (21-32) mmol/L Anion Gap 8 (3-11) BUN 20 (6-23) mg/dl Creatinine 0.81 (0.6-1.2) mg/dl Est Cr Clr Drug Dosing 53.2 ml/min Est GFR ( Amer) 86.5 ml/min Est GFR (Non-Af Amer) 74.6 ml/min BUN/Creatinine Ratio 24.7 H (10-20) Glucose 118 H (70-99(Fasting)) mg/dl POC Glucose (70-99) mg/dl Calcium 9.2 (8.6-10.3) mg/dl SARS-CoV-2, RNA, NAAT (NEGATIVE) Total Time Total Time Spent Total Time Spent (In Minutes): 20 Discharge Plan Discharge Items Patient Disposition: Home - Self-Care Reason For Visit: Left Knee Osteoarthritis Discharge Diagnosis: Left knee osteoarthritis Activity: Per Instructions section Non-emergency contact: Surgeon Call non-emergency contact if: you have any medication questions, your pain is not controlled, your pain is concerning for you, you have a fever, your temperature is above 101, your wound has increased redness and your wound has increased drainage Follow-up/Referrals: Yari Loving MD [Primary Care Provider] - Diet: Regular Addtl Attending Provider Instructions: ACTIVITY RECOMMENDATIONS: SELF CARE INSTRUCTIONS AFTER TOTAL KNEE REPLACEMENT A. You may need to continue a physical therapy program after discharge from the hospital. There are several options available to you. Your doctor will assist you in selecting the best one for you. 1. An out-patient facility 2 to 3 times a week for therapy or home therapy. 2. Continue working on all exercises taught to you in the hospital. Your goals should be to increase bending of your knee to 90 degrees and beyond and to fully straighten your knee. B. You may progress at your own pace from walking with a walker or crutches to a cane; then to no assistive devices. C. Make walking a part of your daily routine. Be up as much as comfortable with rest periods throughout the day. Rest with leg elevation is very important. Use the ice wrap frequently for the first 3-4 weeks. D. There are no restrictions on activities. You may ride in a car, shop, participate in hotel reservationist and all social activities. E. Wear the long elastic stockings (AN hose) 20 hours a day for 2 weeks after surgery. They can be removed several times a day for laundering and for a bath. F. You may shower, no tub baths until cleared by your doctor. SPECIAL CARE INSTRUCTIONS: VERY IMPORTANT TO READ AND REVIEW A. There are a few signs you need to watch for after you are home. Call [facility] if you notice any of the followin. Increased severe knee pain. Some pain is expected especially when you exercise. 2. Increased swelling in your leg or knee; pain or swelling of the calf muscle in either lower leg. 3. Any fluid drainage from the incision. 4. Shortness of breath or chest pain. B. Please call [facility] at if you have any concerns or questions about your operation or recovery. The doctor or his nurse will return your call promptly. C. You must take antibiotics before dental work, bladder, bowel or other surgery. Your doctor will provide you with a permanent care to carry describing this precaution. IMPORTANT: * REMEMBER TO TAKE ASPIRIN, 81 MG, TWICE DAILY FOR 4 WEEKS UNLESS OTHERWISE DIRECTED. THIS IS YOUR BLOOD THINNER. * HIGH RISK PATIENTS MAY BE PRESCRIBED A STRONGER BLOOD THINNER. THIS WILL BE PROVIDED AT DISCHARGE. * CALL IF INCREASED PAIN, REDNESS, DRAINAGE OR FEVER GREATER THAT 101. * WEAR AN HOSE 20 HOURS PER DAY FOR 2 WEEKS. This is a large suction dressing covering your incision. This will help pull any excess drainage from the wound and allow your incision to heal properly. You may shower with this if you can keep the unit outside of the shower. If any bleeding or leakage is noted please call your doctor's office. This will remain on your incision for 7 days and then should be removed. This can be done yourself or by the home nursing staff if applicable. The entire unit is disposable once removed. Once removed, keep incision clean and dry. If redness or drainage is noted, please call your surgeon. Once this is removed please follow below instructions: This is a mesh tape dressing that is covered with glue. It should remain in place until the incision is properly healed, usually 10-14 days. This dressing is designed to naturally slough off. You may trim the excess mesh tape as it peels off. Incision may be briefly wet in a shower. Dry immediately by blotting with a clean, dry towel. Do not bath or swim until instructed by your doctor. Do not scratch, rub, or pick at the dressing. Do not apply any topical ointments or lotions until dressing is completely removed and/or instructed by your doctor. There may be a small piece of suture material at one end of your incision. Do not pull or trim this. If it is bothersome or catching on clothing, you may cover it with a band-aid. IF INCISION IS LEAKING THROUGH DRESSING, CALL THE OFFICE . FOLLOW UP VISIT: If appointment is not already scheduled: Please call [facility] to make a follow-up appointment for 2 weeks after your surgery at . Stand-Alone Forms: My [facility], Pain - Opioid Pain Management, Smoking Cessation Medications and DC Order Prescriptions: New celecoxib [Celebrex] 200 mg Capsule 200 mg PO BID Qty: 60 0RF aspirin 81 mg Tablet,Delayed Release (Dr/Ec) 81 mg PO BID Qty: 60 0RF acetaminophen [Tylenol Extra Strength] 500 mg Tablet 1,000 mg PO Q8 Qty: 60 0RF oxycodone 5 mg Tablet 5 - 10 mg PO .Q4h-6h MDD 6 PRN (Reason: pain) Qty: 30 0RF Rx Instructions: Ongoing therapy, Dr. Desai supervising Continued atorvastatin [Lipitor] 40 mg Tablet 40 mg PO QAM vitamin B complex Tablet 1 tab PO QAM loratadine [Claritin] 10 mg Tablet 10 mg PO QAM PRN (Reason: Allergy Symptoms) metoprolol succinate 25 mg Tablet Extended Release 24 Hr 12.5 mg PO QAM metformin 500 mg Tablet Extended Release 24hr 1,000 mg PO QPM Rx Instructions: w/dinner lisinopril 10 mg tablet 10 mg PO QAM Discontinued aspirin 81 mg tablet,delayed release (DR/EC) 81 mg PO QPM acetaminophen [Tylenol Extra Strength] 500 mg tablet 1,000 mg PO Q8H PRN (Reason: Pain) Discharge Orders: Discharge Order (Routine); Ordered 01/06/23 Ordered By: Иван Lange Admission Data Admit Date/Time: 01/05/23 10:06 Attending Provider: Kareem Desai Admit Provider: Kareem Desai Primary Care Provider: Yari Loving Other Providers: Jennifer Kinsey Amrit Other Interventions: Discharge Summary Assessment (RN) Last Done: 01/06/23 10:09
== END 2023-01-06 11:40 | disposition home or self-care (01) ==
LOC: 3E 05:02 → ASU 05:02